=== PATIENT | male | born 1940 | race Caucasian/White ===

== ENCOUNTER → 2016-08-25 | Outpatient (CLI) | payer OTHER ==
[~2016-08-25] MED LIST: ASPI1TAB PO; CALTTAB5 PO; DULE100A IN; INCR1INH IN; MUCI600T34 PO; MUPI2OI TOP; PROBCAP15 PO; TRAZ50TA4 PO; VITA500T53 PO; ZOLO50TA PO
--- NOTE | 2016-08-26 04:48 | REP ---
Clinical: COPD. Technique: PA and lateral. Comparison: 12/28/2013. Findings: Diffuse chronic interstitial changes and evidence for COPD noted. Findings are relatively similar to prior examinations. No obvious acute consolidation, effusion, or pneumothorax. Mediastinum and cardiac silhouette within normal limits. Skeletal structures demonstrate osteopenia and degenerative changes along with prior fixation in the left shoulder. Impression: Diffuse chronic interstitial and COPD type changes. No obvious acute cardiopulmonary process. If the patient remains symptomatic consider chest CT for further investigation. Signed by Edin Sung MD 08/26/2016 04:39 A
== END ==
LOC: M SMT 13:59
PROVIDERS: ATTEND Internal Medicine Pulmonary Disease
DX: J44.9 Chronic obstructive pulmonary disease, unspecified (principal)

== ENCOUNTER → 2017-02-12 | Outpatient (REF) | payer OTHER ==
[~2017-02-12] MED LIST changes: -MUCI600T34 PO; +MUCI600T37 PO; +TRAZ50TA11 PO; -TRAZ50TA4 PO
== END ==
LOC: M LAB REF 16:54
PROVIDERS: ATTEND Physician Assistant Medical
DX: L02.214 Cutaneous abscess of groin (principal)

== ENCOUNTER → 2017-12-15 | Outpatient (CLI) | payer OTHER | LOC: M RAD 10:40 | DX: J44.9 Chronic obstructive pulmonary disease, unspecified (principal); R91.8 Other nonspecific abnormal finding of lung field | CPT/HCPCS: 71046 ==

== ENCOUNTER → 2018-01-06 | Outpatient (CLI) | payer OTHER | LOC: M RAD 10:07 | DX: J44.9 Chronic obstructive pulmonary disease, unspecified (principal) | CPT/HCPCS: 71250 ==

== ENCOUNTER 2018-11-22 23:05 | Emergency (ER) | payer MEDICARE, OTHER ==
[~2018-11-22] VITALS: Ht 190.5 cm; Wt 64.0 kg
[~2018-11-22 23:05] MED LIST changes: -ASPI1TAB PO; +ASPI81TA26 PO; +MUPI1OIN2 TOP; -MUPI2OI TOP; +TRAZ-252 PO; -TRAZ50TA11 PO; +VITA500T17 PO; -VITA500T53 PO
[2018-11-23 00:35] LABS: BASO % 0.3 % (0.0-1.0); EOS # 0.1 10^3/uL (0.0-0.5); EOS % 1.5 % (0.0-3.0); HEMATOCRIT 36.5 % (42.0-52.0); HEMOGLOBIN 12.3 g/dl (13.5-17.5); LYMPH # 1.6 10^3/uL (1.5-5.0); LYMPH % 16.9 % (24.0-44.0); MEAN CORPUSCULAR HEMOGLOBIN 32.4 pg (27.0-33.0); MEAN CORPUSCULAR HGB CONC 33.7 g/dl (32.0-36.5); MEAN CORPUSCULAR VOLUME 96.1 fl (80.0-96.0); MONO % 10.7 % (0.0-5.0); NEUTROPHILS # 6.4 10^3/uL (1.5-8.5); NEUTROPHILS % 70.1 % (36.0-66.0); PLATELET COUNT, AUTOMATED 144 10^3/uL (150-450); WHITE BLOOD COUNT 9.2 10^3/uL (4.0-10.0)
[2018-11-23 00:52] LABS: CALCIUM LEVEL 8.8 MG/DL (8.8-10.2); CK-MB VALUE MASS 1.7 NG/ML (<3.6); CREATININE FOR GFR 1.65 MG/DL (0.70-1.30); GLOMERULAR FILTRATION RATE 43.2 (>42); MB/CK RELATIVE INDEX 5.48 (< OR =4); TROPONIN I 0.02 NG/ML (< 0.10)
[2018-11-23] MEDS ORDERED: NS 500 ML IV ONE (02:30)
--- NOTE | 2018-11-23 04:29 | REPVR ---
EXAM: XR Chest, 2 Views EXAM DATE/TIME: 11/23/2018 2:32 AM CLINICAL HISTORY: 78 years old, male; Other: Near sync; Additional info: Near syncope TECHNIQUE: Imaging protocol: XR of the chest Views: 2 views. COMPARISON: CR Chest, 2 view PA, Lat 12/15/2017 11:17 AM FINDINGS: Lungs: There is hyperinflation and hyperlucency of the lungs, consistent with COPD. There is crowding of markings in the lung bases, which may from low lung volumes and/or mild atelectasis. Pleural space: There are no pleural effusions present. No pneumothorax is seen. Heart/Mediastinum: The heart appears borderline in size, and appears larger than on the prior exam, but the difference may be due to the current AP versus prior PA technique. Vasculature: The aorta demonstrates moderate atherosclerotic calcification. Bones/joints: There is a lucent fracture of the right eighth rib laterally which appears to be acute or subacute. Old rib fractures in the right lower lateral chest were seen on the prior exam. A screw and staple are again seen at the left scapula. IMPRESSION: 1. COPD. Crowding of markings and/or atelectasis in the bilateral lung bases. 2. Right eighth rib fracture, which may be acute or subacute. Electronically signed by: Miladys Cox On 11/23/2018 04:28:56 AM
[2018-11-23 05:47] VITALS: BP 115/62
--- NOTE | 2018-11-23 20:25 | ECGEPIP ---
[facility] - ED Test Date: 2018-11-22 Pat Name: CYRIL MITTAL Department: Room: - Gender: Male Patient Service Rep: KCJ : 1940 Requested By: LONDON Higgins Order Number: [id number] Reading MD: Aura Rivers Measurements Intervals [place] Rate: 60 P: 62 W[place]: 226 QRS: 110 QRSD: 166 T: 57 QT: 428 QTc: 429 Interpretive Statements SINUS RHYTHM WITH FIRST DEGREE AV BLOCK RIGHT BUNDLE BRANCH BLOCK LEFT POSTERIOR FASCICULAR BLOCK SIMILAR 02/22/14 Electronically Signed on 11-23-2018 20:24:42 EDT by Aura Rivers
== END 2018-11-23 05:48 | disposition home or self-care (01) ==
LOC: M ED 23:05
DX: R55 Syncope and collapse (principal); I45.10 Unspecified right bundle-branch block; I44.0 Atrioventricular block, first degree; I44.5 Left posterior fascicular block; S22.31XA Fracture of one rib, right side, initial encounter for closed fracture; X58.XXXA Exposure to other specified factors, initial encounter; Y92.9 Unspecified place or not applicable; Y93.9 Activity, unspecified; Y99.9 Unspecified external cause status; J44.9 Chronic obstructive pulmonary disease, unspecified; N40.0 Benign prostatic hyperplasia without lower urinary tract symptoms; F10.10 Alcohol abuse, uncomplicated; F17.200 Nicotine dependence, unspecified, uncomplicated; Z86.73 Personal history of transient ischemic attack (TIA), and cerebral infarction without residual deficits; Z87.81 Personal history of (healed) traumatic fracture; Z79.82 Long term (current) use of aspirin; Z79.899 Other long term (current) drug therapy; Z88.0 Allergy status to penicillin; Z88.2 Allergy status to sulfonamides

== ENCOUNTER 2018-12-22 14:59 | Inpatient (IN) | payer MEDICARE ==
[~2018-12-22] VITALS: Ht 188 cm; Wt 70.5 kg
[~2018-12-22 14:59] MED LIST changes: -INCR1INH IN; +INCR1INH INH
[2018-12-22] MEDS ORDERED: B-1100TA2 PO (15:21)
[2018-12-22] MEDS ORDERED: LISI-542 PO (15:21)
[2018-12-22] MEDS ORDERED: ATOR40TA75 PO (15:21)
[2018-12-22] MEDS ORDERED: FOLI1TAB11 PO (15:21)
[2018-12-22] MEDS ORDERED: CLOP75TA2 PO (15:21)
[2018-12-22] MEDS ORDERED: LEVO25TA5 PO (15:21)
[2018-12-22] MEDS ORDERED: MIRT1TAB PO (15:21)
--- NOTE | 2018-12-22 15:51 | REP ---
Portable chest x-ray: Single view. History: Dyspnea and cough. Comparison chest x-ray November 23, 2018. Findings: EKG monitoring electrodes and oxygen delivery tubing are seen. Hyperinflation is again noted. There are extensive parenchymal opacities consistent with infiltrates in the right mid and lower lung field. There is a healing rib fracture on the right and several old rib fractures are noted on the right. No infiltrate is visible on the left. Impression: Extensive new right lung infiltrates consistent with pneumonia. Electronically Signed by Francisco Alas MD 12/22/2018 03:42 P
[2018-12-22 15:56] LABS: BASO % 0.1 % (0.0-1.0); HEMATOCRIT 39.6 % (42.0-52.0); HEMOGLOBIN 12.9 g/dl (13.5-17.5); LYMPH # 0.7 10^3/uL (1.5-5.0); LYMPH % 5.2 % (24.0-44.0); MEAN CORPUSCULAR HGB CONC 32.6 g/dl (32.0-36.5); MEAN CORPUSCULAR VOLUME 95.2 fl (80.0-96.0); MONO # 1.9 10^3/uL (0.0-0.8); MONO % 13.1 % (0.0-5.0); NEUTROPHILS # 11.5 10^3/uL (1.5-8.5); NEUTROPHILS % 80.5 % (36.0-66.0); PLATELET COUNT, AUTOMATED 308 10^3/uL (150-450); RED BLOOD COUNT 4.16 10^6/uL (4.30-6.10); WHITE BLOOD COUNT 14.3 10^3/uL (4.0-10.0)
[2018-12-22] MEDS ORDERED: ALBUTEROL SULFATE 2.5 MG/0.5 ML INH NEB SOLN INH ONE (16:00)
[2018-12-22] MEDS ORDERED: NS 500 ML IV ONE (16:00)
[2018-12-22] MEDS ORDERED: IPRATROPIUM 0.5MG/ALBUTEROL 2.5MG INH SOL UD 3ML (DUONEB)(J7620) NEB ONE (16:00)
[2018-12-22] MEDS ORDERED: dexameTHASONE 20 MG/5 ML VIAL (J1100) IV ONE (16:00)
[2018-12-22] MEDS ORDERED: cefTRIAXone SOD 2 GM in D5W MINI-BAG PLUS 50 ML IV ONE (16:00)
[2018-12-22 16:34] LABS: ABG BASE EXCESS 0.9 (-2.0-2.0); ABG HCO3 27.9 MEQ/L (22.0-26.0); ABG O2 SATURATION 98.4 % (95.0-99.0); ABG PARTIAL PRESSURE CO2 55.1 mmHg (35.0-45.0); ABG PARTIAL PRESSURE O2 119.6 mmHg (75.0-100.0); ABG STANDARD HCO3 25.3 MEQ/L (22.0-26.0); ABG TOTAL CO2 29.6 MEQ/L (23.0-31.0); ABG pH (ARTERIAL) 7.323 UNITS (7.350-7.450)
[2018-12-22 16:55] LABS: ALBUMIN 2.7 GM/DL (3.2-5.2); ALT/SGPT 27 U/L (12-78); BILIRUBIN,DIRECT 0.1 MG/DL (0.0-0.2); BILIRUBIN,TOTAL 0.6 MG/DL (0.2-1.0); BLOOD UREA NITROGEN 18 MG/DL (7-18); CALCIUM LEVEL 8.7 MG/DL (8.8-10.2); CARBON DIOXIDE LEVEL 29 MEQ/L (21-32); CHLORIDE LEVEL 91 MEQ/L (98-107); CK-MB VALUE MASS 4.1 NG/ML (<3.6); CPK CREATINE PHOSPHOKINASE 115 U/L (39-308); CREATININE FOR GFR 1.03 MG/DL (0.70-1.30); GLOMERULAR FILTRATION RATE > 60.0 (>42); GLUCOSE, FASTING 130 MG/DL (70-100); MB/CK RELATIVE INDEX 3.57 (< OR =4); NT-PRO BNP 8011 PG/ML (<450); POTASSIUM SERUM 5.2 MEQ/L (3.5-5.1); SODIUM LEVEL 127 MEQ/L (136-145); THYROXINE (T4) 8.9 UG/DL (4.5-12.0); TOTAL PROTEIN 6.6 GM/DL (6.4-8.2)
[2018-12-22 16:56] LABS: INFLUENZA A AMPLIFICATION NEGATIVE (NEGATIVE); INFLUENZA B AMPLIFICATION NEGATIVE (NEGATIVE)
[2018-12-22] MEDS ORDERED: VENTAER INH (18:39)
[2018-12-22] MEDS ORDERED: SENN1TAB8 PO (18:47)
[2018-12-22] MEDS ORDERED: TEMA15CA2 PO (18:47)
[2018-12-22] MEDS ORDERED: CVS10CAP8 PO (18:47)
[2018-12-22 19:00] VITALS: O2SAT 97
--- NOTE | 2018-12-22 19:06 | ECGEPIP ---
[facility] - ED Test Date: 2018-12-22 Pat Name: CYRIL MITTAL Department: Room: - Gender: Male Sheet Writer: [email or web address] : 1940 Requested By: ELIANE Olsen Order Number: [id number] Reading MD: Torres Castillo Measurements Intervals [place] Rate: 92 P: 62 W[place]: 219 QRS: 136 QRSD: 170 T: -60 QT: 366 QTc: 455 Interpretive Statements SINUS RHYTHM WITH FIRST DEGREE AV BLOCK RIGHT BUNDLE BRANCH BLOCK LEFT POSTERIOR FASCICULAR BLOCK SIMILAR TO 11/22/18 Electronically Signed on 12-22-2018 19:05:47 EDT by Torres Castillo
[2018-12-22 20:00] VITALS: O2SAT 91
[2018-12-22] MEDS ORDERED: ACETAMINOPHEN TAB 650MG DOSE (2X325MG) PO PRN (20:00)
[2018-12-22] MEDS ORDERED: SENNA 8.6 MG TAB (SENOKOT) PO PRN (20:00)
[2018-12-22] MEDS ORDERED: MAALOX 30 ML SUSP *UDC PO PRN (20:00)
[2018-12-22] MEDS ORDERED: IPRATROPIUM 0.5MG/ALBUTEROL 2.5MG INH SOL UD 3ML (DUONEB)(J7620) NEB PRN (20:00)
[2018-12-22] MEDS ORDERED: MOM 30ML SUSPENSION UDC PO PRN (20:00)
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
[2018-12-22 21:00] VITALS: O2SAT 94
[2018-12-22] MEDS: NICOTINE 14 MG/24 HR TRANSDERMAL TD SCH (21:00)
[2018-12-22 21:13] VITALS: BP 151/77
[2018-12-22] MEDS: AZITHROMYCIN INJ 500 MG, VIAL MATE ADAPTER 1 EACH in D5W 250 ML IV SCH (21:56)
[2018-12-22] MEDS: ATORVASTATIN 20 MG TAB PO SCH (22:28)
[2018-12-22] MEDS: DOCUSATE SODIUM 100 MG CAP PO SCH (22:29)
[2018-12-22] MEDS: LISINOPRIL 5 MG TAB PO SCH (22:29)
[2018-12-22] MEDS: MIRTAZAPINE 7.5MG PER 1/2 TABLET PO SCH (22:30)
[2018-12-22] MEDS: THIAMINE 100 MG TAB PO SCH (22:30)
[2018-12-22] MEDS: IPRATROPIUM 0.5MG/ALBUTEROL 2.5MG INH SOL UD 3ML (DUONEB)(J7620) NEB SCH (23:20)
[2018-12-23] VITALS (21 sets, daily range): BP systolic 106–136; BP diastolic 60–69; O2SAT 87–98
[2018-12-23] MEDS: IPRATROPIUM 0.5MG/ALBUTEROL 2.5MG INH SOL UD 3ML (DUONEB)(J7620) NEB SCH ×4 (03:13→20:21)
[2018-12-23] MEDS: methylPREDNISolone INJ 125 MG/2 ML VIAL (J2930) IV SCH ×3 (03:17→18:17)
[2018-12-23 05:43] LABS: HEMATOCRIT 37.6 % (42.0-52.0); HEMOGLOBIN 12.4 g/dl (13.5-17.5); MEAN CORPUSCULAR HEMOGLOBIN 31.5 pg (27.0-33.0); MEAN CORPUSCULAR VOLUME 95.4 fl (80.0-96.0); PLATELET COUNT, AUTOMATED 295 10^3/uL (150-450); RED BLOOD COUNT 3.94 10^6/uL (4.30-6.10); WHITE BLOOD COUNT 12.8 10^3/uL (4.0-10.0)
[2018-12-23 06:21] LABS: ALBUMIN 2.4 GM/DL (3.2-5.2); ALT/SGPT 22 U/L (12-78); BILIRUBIN,TOTAL 0.3 MG/DL (0.2-1.0); BLOOD UREA NITROGEN 20 MG/DL (7-18); CALCIUM LEVEL 8.1 MG/DL (8.8-10.2); CARBON DIOXIDE LEVEL 29 MEQ/L (21-32); CHLORIDE LEVEL 94 MEQ/L (98-107); CREATININE FOR GFR 0.92 MG/DL (0.70-1.30); GLOMERULAR FILTRATION RATE > 60.0 (>42); GLUCOSE, FASTING 134 MG/DL (70-100); MAGNESIUM LEVEL 1.8 MG/DL (1.8-2.4); NT-PRO BNP 7325 PG/ML (<450); SODIUM LEVEL 129 MEQ/L (136-145); TROPONIN I 0.04 NG/ML (< 0.10)
[2018-12-23] MEDS: LEVOTHYROXINE 25MCG TABLET (0.025MG) PO SCH (06:29)
[2018-12-23] MEDS: HEPARIN SOD (PORCINE) 5000 UNITS/ML VIAL SC SCH ×2 (09:04→21:15)
[2018-12-23] MEDS: FOLIC ACID 1 MG TAB PO SCH (09:04)
[2018-12-23] MEDS: DOCUSATE SODIUM 100 MG CAP PO SCH ×2 (09:04→21:13)
[2018-12-23] MEDS: ASPIRIN 81 MG ENTERIC TAB PO SCH (09:04)
[2018-12-23] MEDS: CLOPIDOGREL 75 MG TAB PO SCH (09:04)
--- NOTE | 2018-12-23 18:02 | IPNPDOC ---
Text Note Date of Service The patient was seen on 12/23/18. NOTE SUBJECTIVE: Mr. Bella denies any cough or congestion. States he had productive cough initially at admission, but none now. He denies any shortness of breath as well. The patient is admitted with a right-sided community-acquired pneumonia. The patient is attributing this to receiving a flu shot but I have explained that this is highly unlikely. OBJECTIVE: Please see vital signs below--he has been afebrile since. MAXIMUM TEMPERATURE of 99 at admission. Physical exam: General: The patient is ill appearing HENT: Neck is supple with no adenopathy or thyromegaly. He does have some scleral injection CV: Regular rate and rhythm with a normal S1 and S2. Respiratory: Patient has right sided basilar coarse breath sounds and crackles, no active cough Abdomen: Soft, nontender, nondistended, bowel tones are present. Extremities: Pedal pulses are palpable, no peripheral edema. Neuro: No focal neuromotor or sensory deficits ASSESSMENT/PLAN: Community-acquired pneumonia. Patient has significant right-sided infiltrates. He presented with productive cough but does not have any currently. He is on appropriate therapy in the form of ceftriaxone and azithromycin. Leukocytosis is improving and cultures are negative to date. The patient continues on his usual medication regimen to manage his underlying hypertension, coronary artery disease, hypothyroidism, and benign prostatic hypertrophy. In the presence of his pneumonia he does not appear to be having an acute exacerbation of his COPD. VS,Fishbone, I+O VS, Fishbone, I+O Laboratory Tests 12/23/18 05:21 Red Blood Count 3.94 L, Mean Corpuscular Volume 95.4, Mean Corpuscular Hemoglobin 31.5, Mean Corpuscular Hemoglobin Concent 33.0, Red Cell Distribution Width 15.6 H, Calcium Level 8.1 L, Aspartate Amino Transf (AST/SGOT) 21, Alanine Aminotransferase (ALT/SGPT) 22, Alkaline Phosphatase 71, Total Bilirubin 0.3, Total Protein 6.0 L, Albumin 2.4 L Vital Signs Date Time Temp Pulse Resp B/P (MAP) Pulse Ox O2 Delivery O2 Flow Rate FiO2 12/23/18 16:00 95 Nasal Cannula 2.0 12/23/18 16:00 98.3 89 20 126/69 (88) I&O- Last 24 Hours up to 6 AM 12/23/18 06:00 Intake Total 1180 ml Output Total 250 ml Balance 930 ml YESENIA GUPTA MD Dec 23, 2018 18:02
[2018-12-23] MEDS: cefTRIAXone SOD 1 GM in D5W MINI-BAG PLUS 50 ML IV SCH (20:19)
[2018-12-23] MEDS: MIRTAZAPINE 7.5MG PER 1/2 TABLET PO SCH (21:14)
[2018-12-23] MEDS: ATORVASTATIN 20 MG TAB PO SCH (21:14)
[2018-12-23] MEDS: THIAMINE 100 MG TAB PO SCH (21:15)
[2018-12-23] MEDS: NICOTINE 14 MG/24 HR TRANSDERMAL TD SCH (21:15)
[2018-12-23] MEDS: AZITHROMYCIN INJ 500 MG, VIAL MATE ADAPTER 1 EACH in D5W 250 ML IV SCH (21:16)
[2018-12-23] MEDS: LISINOPRIL 5 MG TAB PO SCH (21:19)
[2018-12-23] MEDS ORDERED: SLF 3 ML SYR IV PRN (23:15)
[2018-12-24] VITALS (23 sets, daily range): BP systolic 120–144; BP diastolic 64–78; O2SAT 77–98
[2018-12-24] MEDS: IPRATROPIUM 0.5MG/ALBUTEROL 2.5MG INH SOL UD 3ML (DUONEB)(J7620) NEB SCH ×4 (02:00→20:09)
[2018-12-24] MEDS: methylPREDNISolone INJ 125 MG/2 ML VIAL (J2930) IV SCH ×3 (02:46→18:26)
[2018-12-24 05:37] LABS: BASO % 0.3 % (0.0-1.0); HEMATOCRIT 34.3 % (42.0-52.0); HEMOGLOBIN 11.2 g/dl (13.5-17.5); LYMPH # 1.4 10^3/uL (1.5-5.0); LYMPH % 10.7 % (24.0-44.0); MEAN CORPUSCULAR HEMOGLOBIN 31.5 pg (27.0-33.0); MEAN CORPUSCULAR HGB CONC 32.7 g/dl (32.0-36.5); MEAN CORPUSCULAR VOLUME 96.6 fl (80.0-96.0); MONO % 7.6 % (0.0-5.0); NEUTROPHILS # 9.9 10^3/uL (1.5-8.5); NEUTROPHILS % 76.7 % (36.0-66.0); PLATELET COUNT, AUTOMATED 339 10^3/uL (150-450); RED BLOOD COUNT 3.55 10^6/uL (4.30-6.10)
[2018-12-24 05:56] LABS: BLOOD UREA NITROGEN 23 MG/DL (7-18); CALCIUM LEVEL 8.5 MG/DL (8.8-10.2); CARBON DIOXIDE LEVEL 32 MEQ/L (21-32); CHLORIDE LEVEL 94 MEQ/L (98-107); CREATININE FOR GFR 0.91 MG/DL (0.70-1.30); GLOMERULAR FILTRATION RATE > 60.0 (>42); GLUCOSE, FASTING 131 MG/DL (70-100); POTASSIUM SERUM 4.6 MEQ/L (3.5-5.1); SODIUM LEVEL 129 MEQ/L (136-145)
[2018-12-24] MEDS: LEVOTHYROXINE 25MCG TABLET (0.025MG) PO SCH (06:02)
[2018-12-24] MEDS: SLF 3 ML SYR IV SCH ×3 (06:02→20:33)
--- NOTE | 2018-12-24 06:50 | ECHO ---
DATE OF SERVICE: 12/23/2018 REFERRING PROVIDER: Dr. Varun Wallace PATIENT LOCATION: Room 3212. REASON FOR ECHOCARDIOGRAM: Shortness of breath. 2D MEASUREMENTS: IVS: 1.1 cm LV: 4.0 cm LVPW: 1.1 cm LA: 2.3 cm Aorta: 4.0 cm RV: 4.2 cm IVC: 1.9 cm DOPPLER MEASUREMENTS: Peak velocity across the aortic valve: 0.99 m/s Peak velocity across the LVOT: 0.81 m/s Mitral E: 0.44 Mitral A: 0.62 with a ratio of 0.7 Maximum tricuspid valve velocity: 2.7 m/s 2D COMMENTS: 1. Normal left ventricular size, wall thickness, and normal global left ventricular systolic function. There was a hyperdynamic left ventricle with an estimated left ventricular systolic ejection fraction of 65-70%. 2. Normal left atrium. Moderately enlarged right atrium and right ventricle. The right ventricle free wall seems to be hypokinetic consistent with right ventricular systolic dysfunction. 3. The atrial septum appeared to be normal without evidence of defect or shunt. 4. Mildly dilated aortic root at 4.0 cm. 5. No pericardial effusion seen. 6. Mildly calcified aortic valve with normal leaflet excursion. Mildly calcified mitral annulus with normal anterior mitral valve leaflet motion. Normal tricuspid valve and pulmonic valve. The proximal pulmonary artery branches were not well visualized. 7. The inferior vena cava seems to be normal in size. Doppler, it detects mild tricuspid regurgitation. The calculated pulmonary artery systolic pressure varies between 30-40 mmHg. Assessment of the left ventricular diastolic function appeared to be normal. IMPRESSION: 1. Normal global left ventricular systolic function with a hyperdynamic left ventricle. Assessment of the left ventricular diastolic function appeared to be normal. 2. Aortic valve sclerosis without stenosis or aortic regurgitation. 3. Mitral annulus calcification with without any significant mitral regurgitation or mitral stenosis. 4. Mild tricuspid regurgitation with mild pulmonary hypertension. Could not rule out more severe pulmonary hypertension. 5. Dilated right heart chambers with right ventricular systolic dysfunction.
[2018-12-24] MEDS: DOCUSATE SODIUM 100 MG CAP PO SCH ×3 (08:52→20:35)
[2018-12-24] MEDS: CLOPIDOGREL 75 MG TAB PO SCH (08:52)
[2018-12-24] MEDS: FOLIC ACID 1 MG TAB PO SCH (08:52)
[2018-12-24] MEDS: ASPIRIN 81 MG ENTERIC TAB PO SCH (08:52)
[2018-12-24] MEDS: HEPARIN SOD (PORCINE) 5000 UNITS/ML VIAL SC SCH ×2 (08:55→20:32)
--- NOTE | 2018-12-24 18:50 | IPNPDOC ---
Text Note Date of Service The patient was seen on 12/24/18. NOTE SUBJECTIVE: Mr. Bella was admitted with community-acquired pneumonia. He cannot deny today that he is producing large quantities of yellow sputum with coughing. OBJECTIVE: Please see vital signs below Physical exam: HENT: Neck is supple with no adenopathy or thyromegaly. He does have some scleral injection CV: Regular rate and rhythm with a normal S1 and S2. Respiratory: Patient has right sided basilar coarse breath sounds and crackles, with coarse productive cough Abdomen: Soft, nontender, nondistended, bowel tones are present. Extremities: Pedal pulses are palpable, trace pitting ankle edema. Neuro: No focal neuromotor or sensory deficits ASSESSMENT/PLAN: 1. Community-acquired pneumonia. Patient has significant right-sided infiltrates. He presented with productive cough. He is on appropriate therapy in the form of ceftriaxone and azithromycin. Leukocytosis is improving and cultures are negative to date. 2.The patient continues on his usual medication regimen to manage his underlying hypertension, coronary artery disease, hypothyroidism, and benign prostatic hypertrophy. In the presence of his pneumonia he does not appear to be having an acute exacerbation of his COPD. 3. Heart failure. Echocardiogram shows preserved left ventricular function with ejection fraction of 65-70%. However, there is right sided hypokinesis consistent with right ventricular systolic dysfunction. Pulmonary artery systolic pressure is 30-40 mmHg, consistent with at least mild pulmonary hypertension. Patient will be treated as clinically appropriate. VS,Fishbone, I+O VS, Fishbone, I+O Laboratory Tests 12/24/18 05:13 Red Blood Count 3.55 L, Mean Corpuscular Volume 96.6 H, Mean Corpuscular Hemoglobin 31.5, Mean Corpuscular Hemoglobin Concent 32.7, Red Cell Distribution Width 15.4 H, Neutrophils (%) (Auto) 76.7 H, Lymphocytes (%) (Auto) 10.7 L, Monocytes (%) (Auto) 7.6 H, Eosinophils (%) (Auto) 0.0, Basophils (%) (Auto) 0.3, Neutrophils # (Auto) 9.9 H, Lymphocytes # (Auto) 1.4 L, Monocytes # (Auto) 1.0 H, Eosinophils # (Auto) 0.0, Basophils # (Auto) 0.0, Calcium Level 8.5 L Vital Signs Date Time Temp Pulse Resp B/P (MAP) Pulse Ox O2 Delivery O2 Flow Rate FiO2 12/24/18 18:06 96 Nasal Cannula 2.0 12/24/18 16:00 96.7 81 19 132/76 (94) I&O- Last 24 Hours up to 6 AM 12/24/18 06:00 Intake Total 2485 ml Output Total 825 ml Balance 1660 ml YESENIA GUPTA MD Dec 24, 2018 18:50
[2018-12-24] MEDS: TEMAZEPAM 15 MG CAP PO PRN (19:44)
[2018-12-24] MEDS: cefTRIAXone SOD 1 GM in D5W MINI-BAG PLUS 50 ML IV SCH (19:44)
[2018-12-24] MEDS: THIAMINE 100 MG TAB PO SCH (20:31)
[2018-12-24] MEDS: MIRTAZAPINE 7.5MG PER 1/2 TABLET PO SCH (20:31)
[2018-12-24] MEDS: NICOTINE 14 MG/24 HR TRANSDERMAL TD SCH (20:31)
[2018-12-24] MEDS: ATORVASTATIN 20 MG TAB PO SCH (20:31)
[2018-12-24] MEDS: LISINOPRIL 5 MG TAB PO SCH (20:32)
[2018-12-24] MEDS: AZITHROMYCIN INJ 500 MG, VIAL MATE ADAPTER 1 EACH in D5W 250 ML IV SCH (20:32)
[2018-12-25] VITALS (12 sets, daily range): BP systolic 112–145; BP diastolic 60–78; O2SAT 86–99
[2018-12-25] MEDS: IPRATROPIUM 0.5MG/ALBUTEROL 2.5MG INH SOL UD 3ML (DUONEB)(J7620) NEB SCH ×4 (01:33→19:52)
[2018-12-25] MEDS: methylPREDNISolone INJ 125 MG/2 ML VIAL (J2930) IV SCH ×3 (03:44→18:14)
[2018-12-25] MEDS: LEVOTHYROXINE 25MCG TABLET (0.025MG) PO SCH (05:21)
[2018-12-25] MEDS: SLF 3 ML SYR IV SCH ×3 (05:22→21:08)
[2018-12-25] MEDS: DOCUSATE SODIUM 100 MG CAP PO SCH ×2 (08:43→21:06)
[2018-12-25] MEDS: CLOPIDOGREL 75 MG TAB PO SCH (08:43)
[2018-12-25] MEDS: HEPARIN SOD (PORCINE) 5000 UNITS/ML VIAL SC SCH ×2 (08:43→21:06)
[2018-12-25] MEDS: FOLIC ACID 1 MG TAB PO SCH (08:43)
[2018-12-25] MEDS: ASPIRIN 81 MG ENTERIC TAB PO SCH (08:43)
[2018-12-25 08:46] LABS: HEMATOCRIT 38.6 % (42.0-52.0); HEMOGLOBIN 12.5 g/dl (13.5-17.5); MEAN CORPUSCULAR HEMOGLOBIN 31.3 pg (27.0-33.0); MEAN CORPUSCULAR HGB CONC 32.4 g/dl (32.0-36.5); MEAN CORPUSCULAR VOLUME 96.5 fl (80.0-96.0); PLATELET COUNT, AUTOMATED 433 10^3/uL (150-450); WHITE BLOOD COUNT 13.5 10^3/uL (4.0-10.0)
[2018-12-25 09:12] LABS: BLOOD UREA NITROGEN 22 MG/DL (7-18); CALCIUM LEVEL 9.1 MG/DL (8.8-10.2); CARBON DIOXIDE LEVEL 35 MEQ/L (21-32); CHLORIDE LEVEL 92 MEQ/L (98-107); CREATININE FOR GFR 0.87 MG/DL (0.70-1.30); GLOMERULAR FILTRATION RATE > 60.0 (>42); GLUCOSE, FASTING 128 MG/DL (70-100); POTASSIUM SERUM 5.1 MEQ/L (3.5-5.1); SODIUM LEVEL 130 MEQ/L (136-145)
[2018-12-25] MEDS: cefTRIAXone SOD 1 GM in D5W MINI-BAG PLUS 50 ML IV SCH (18:14)
--- NOTE | 2018-12-25 19:59 | IPNPDOC ---
Text Note Date of Service The patient was seen on 12/25/18. NOTE SUBJECTIVE: Mr. Bella is doing well today. He is sitting upright in a chair eating breakfast. He does not have any respiratory distress. The patient is admitted with right-sided pneumonia. OBJECTIVE: Please see vital signs below Physical exam: HENT: Neck is supple with no adenopathy or thyromegaly. He does have some scleral injection CV: Regular rate and rhythm with a normal S1 and S2. Respiratory: Patient has bilaterally, good air moment with right-sided coarse breath sounds and cough resolved for now Abdomen: Soft, nontender, nondistended, bowel tones are present. Extremities: Pedal pulses are palpable, trace pitting ankle edema. Neuro: No focal neuromotor or sensory deficits ASSESSMENT/PLAN: 1. Community-acquired pneumonia. Patient has significant right-sided infiltrates. He presented with productive cough. He is on appropriate therapy in the form of ceftriaxone and azithromycin. Leukocytosis is improving and cultures are negative to date. 2.The patient continues on his usual medication regimen to manage his underlying hypertension, coronary artery disease, hypothyroidism, and benign prostatic hypertrophy. In the presence of his pneumonia he does not appear to be having an acute exacerbation of his COPD. 3. Heart failure. Echocardiogram shows preserved left ventricular function with ejection fraction of 65-70%. However, there is right sided hypokinesis consistent with right ventricular systolic dysfunction. Pulmonary artery systolic pressure is 30-40 mmHg, consistent with at least mild pulmonary hypertension. Patient will be treated as clinically appropriate. VS,Fishbone, I+O VS, Fishbone, I+O Laboratory Tests 12/25/18 08:11 Red Blood Count 4.00 L, Mean Corpuscular Volume 96.5 H, Mean Corpuscular Hemoglobin 31.3, Mean Corpuscular Hemoglobin Concent 32.4, Red Cell Distribution Width 15.4 H, Calcium Level 9.1 Vital Signs Date Time Temp Pulse Resp B/P (MAP) Pulse Ox O2 Delivery O2 Flow Rate FiO2 12/25/18 16:00 97.9 73 16 139/77 (97) 91 1.0 12/25/18 06:00 Nasal Cannula I&O- Last 24 Hours up to 6 AM 12/25/18 06:00 Intake Total 905 ml Output Total 850 ml Balance 55 ml YESENIA GUPTA MD Dec 25, 2018 19:59
[2018-12-25] MEDS: NICOTINE 14 MG/24 HR TRANSDERMAL TD SCH (21:05)
[2018-12-25] MEDS: ATORVASTATIN 20 MG TAB PO SCH (21:06)
[2018-12-25] MEDS: AZITHROMYCIN INJ 500 MG, VIAL MATE ADAPTER 1 EACH in D5W 250 ML IV SCH (21:06)
[2018-12-25] MEDS: MIRTAZAPINE 7.5MG PER 1/2 TABLET PO SCH (21:06)
[2018-12-25] MEDS: TEMAZEPAM 15 MG CAP PO PRN (21:06)
[2018-12-25] MEDS: LISINOPRIL 5 MG TAB PO SCH (21:08)
[2018-12-25] MEDS: THIAMINE 100 MG TAB PO SCH (21:08)
[2018-12-26] VITALS: BP 119/70
[2018-12-26] MEDS: IPRATROPIUM 0.5MG/ALBUTEROL 2.5MG INH SOL UD 3ML (DUONEB)(J7620) NEB SCH ×4 (02:00→19:25)
[2018-12-26] MEDS: methylPREDNISolone INJ 125 MG/2 ML VIAL (J2930) IV SCH ×3 (02:41→18:40)
[2018-12-26 04:00] VITALS: BP 122/66
[2018-12-26 05:43] LABS: HEMOGLOBIN 11.7 g/dl (13.5-17.5); MEAN CORPUSCULAR HGB CONC 32.5 g/dl (32.0-36.5); MEAN CORPUSCULAR VOLUME 95.5 fl (80.0-96.0); PLATELET COUNT, AUTOMATED 366 10^3/uL (150-450); RED BLOOD COUNT 3.77 10^6/uL (4.30-6.10); WHITE BLOOD COUNT 12.3 10^3/uL (4.0-10.0)
[2018-12-26] MEDS: LEVOTHYROXINE 25MCG TABLET (0.025MG) PO SCH (06:05)
[2018-12-26] MEDS: SLF 3 ML SYR IV SCH ×3 (06:06→20:47)
[2018-12-26 06:13] LABS: BLOOD UREA NITROGEN 23 MG/DL (7-18); CALCIUM LEVEL 8.3 MG/DL (8.8-10.2); CARBON DIOXIDE LEVEL 33 MEQ/L (21-32); CHLORIDE LEVEL 92 MEQ/L (98-107); CREATININE FOR GFR 0.81 MG/DL (0.70-1.30); GLOMERULAR FILTRATION RATE > 60.0 (>42); GLUCOSE, FASTING 150 MG/DL (70-100); POTASSIUM SERUM 5.2 MEQ/L (3.5-5.1); SODIUM LEVEL 128 MEQ/L (136-145)
[2018-12-26 08:00] VITALS: BP 140/76
[2018-12-26] MEDS: CLOPIDOGREL 75 MG TAB PO SCH (09:50)
[2018-12-26] MEDS: FOLIC ACID 1 MG TAB PO SCH (09:50)
[2018-12-26] MEDS: DOCUSATE SODIUM 100 MG CAP PO SCH ×2 (09:50→20:46)
[2018-12-26] MEDS: ASPIRIN 81 MG ENTERIC TAB PO SCH (09:51)
[2018-12-26] MEDS: HEPARIN SOD (PORCINE) 5000 UNITS/ML VIAL SC SCH ×2 (09:51→20:46)
[2018-12-26 12:00] VITALS: BP 145/70
[2018-12-26] MEDS: AZITHROMYCIN 250 MG TAB PO SCH (15:08)
--- NOTE | 2018-12-26 17:29 | IPNPDOC ---
Text Note Date of Service The patient was seen on 12/26/18. NOTE SUBJECTIVE: The patient is awake, alert and conversant. He is tolerating being up in a chair. Patient was admitted with right-sided pneumonia. His FiO2 has been weaned down to 1 L/m. OBJECTIVE: Please see vital signs below Physical exam: HENT: Neck is supple with no adenopathy or thyromegaly. He does have some scleral injection CV: Regular rate and rhythm with a normal S1 and S2. Respiratory: Patient has bilaterally, good air moment, he has resolution for now of his coarse breath sounds and cough Abdomen: Soft, nontender, nondistended, bowel tones are present. Extremities: Pedal pulses are palpable, trace pitting ankle edema. Neuro: No focal neuromotor or sensory deficits ASSESSMENT/PLAN: 1. Community-acquired pneumonia. Patient has significant right-sided infiltrates. He presented with productive cough. Leukocytosis is improving and blood cultures are negative to date. The patient had initially been on IV antibiotics in the form of ceftriaxone and azithromycin and is transitioned to oral antibiotics. FiO2 has been weaned down to 1 L/m; the patient is not on oxygen at baseline at home. Patient continues with physical therapy to work on his activity tolerance. 2.The patient continues on his usual medication regimen to manage his underlying hypertension, coronary artery disease, hypothyroidism, and benign prostatic hypertrophy. In the presence of his pneumonia he does not appear to be having an acute exacerbation of his COPD. 3. Heart failure. Echocardiogram shows preserved left ventricular function with ejection fraction of 65-70%. However, there is right sided hypokinesis consistent with right ventricular systolic dysfunction. Pulmonary artery systolic pressure is 30-40 mmHg, consistent with at least mild pulmonary hypertension. Patient will be treated as clinically appropriate. VS,Fishbone, I+O VS, Fishbone, I+O Laboratory Tests 12/26/18 05:21 Red Blood Count 3.77 L, Mean Corpuscular Volume 95.5, Mean Corpuscular Hemoglobin 31.0, Mean Corpuscular Hemoglobin Concent 32.5, Red Cell Distribution Width 15.4 H, Calcium Level 8.3 L Vital Signs Date Time Temp Pulse Resp B/P (MAP) Pulse Ox O2 Delivery O2 Flow Rate FiO2 12/26/18 12:00 97.3 60 16 145/70 (95) 94 1.0 12/25/18 06:00 Nasal Cannula I&O- Last 24 Hours up to 6 AM 12/26/18 06:00 Intake Total 1720 ml Output Total 500 ml Balance 1220 ml YESENIA GUPTA MD Dec 26, 2018 17:29
[2018-12-26 20:00] VITALS: BP 158/72
[2018-12-26] MEDS: THIAMINE 100 MG TAB PO SCH (20:44)
[2018-12-26] MEDS: ATORVASTATIN 20 MG TAB PO SCH (20:45)
[2018-12-26] MEDS: CEFUROXIME 500 MG TAB PO SCH (20:45)
[2018-12-26] MEDS: LISINOPRIL 5 MG TAB PO SCH (20:45)
[2018-12-26] MEDS: MIRTAZAPINE 7.5MG PER 1/2 TABLET PO SCH (20:45)
[2018-12-26] MEDS: NICOTINE 14 MG/24 HR TRANSDERMAL TD SCH (20:47)
[2018-12-27] VITALS: BP 132/74
[2018-12-27] MEDS: IPRATROPIUM 0.5MG/ALBUTEROL 2.5MG INH SOL UD 3ML (DUONEB)(J7620) NEB SCH ×4 (00:04→19:52)
[2018-12-27] MEDS: methylPREDNISolone INJ 125 MG/2 ML VIAL (J2930) IV SCH ×3 (03:06→18:07)
[2018-12-27 04:00] VITALS: BP 135/78
[2018-12-27 05:37] LABS: HEMATOCRIT 37.4 % (42.0-52.0); HEMOGLOBIN 12.4 g/dl (13.5-17.5); MEAN CORPUSCULAR HEMOGLOBIN 30.8 pg (27.0-33.0); MEAN CORPUSCULAR HGB CONC 33.2 g/dl (32.0-36.5); PLATELET COUNT, AUTOMATED 401 10^3/uL (150-450); RED BLOOD COUNT 4.02 10^6/uL (4.30-6.10); WHITE BLOOD COUNT 13.8 10^3/uL (4.0-10.0)
[2018-12-27 05:56] LABS: BLOOD UREA NITROGEN 22 MG/DL (7-18); CARBON DIOXIDE LEVEL 33 MEQ/L (21-32); CHLORIDE LEVEL 92 MEQ/L (98-107); CREATININE FOR GFR 0.72 MG/DL (0.70-1.30); GLOMERULAR FILTRATION RATE > 60.0 (>42); GLUCOSE, FASTING 128 MG/DL (70-100); POTASSIUM SERUM 4.6 MEQ/L (3.5-5.1); SODIUM LEVEL 128 MEQ/L (136-145)
[2018-12-27] MEDS: LEVOTHYROXINE 25MCG TABLET (0.025MG) PO SCH (06:35)
[2018-12-27] MEDS: SLF 3 ML SYR IV SCH ×3 (06:36→20:39)
[2018-12-27 08:00] VITALS: BP 142/72
[2018-12-27] MEDS: HEPARIN SOD (PORCINE) 5000 UNITS/ML VIAL SC SCH ×2 (09:46→20:37)
[2018-12-27] MEDS: AZITHROMYCIN 250 MG TAB PO SCH (09:46)
[2018-12-27] MEDS: FOLIC ACID 1 MG TAB PO SCH (09:46)
[2018-12-27] MEDS: ASPIRIN 81 MG ENTERIC TAB PO SCH (09:46)
[2018-12-27] MEDS: DOCUSATE SODIUM 100 MG CAP PO SCH ×2 (09:46→20:38)
[2018-12-27] MEDS: CLOPIDOGREL 75 MG TAB PO SCH (09:47)
[2018-12-27] MEDS: CEFUROXIME 500 MG TAB PO SCH ×2 (09:47→20:38)
[2018-12-27 12:00] VITALS: BP 158/77
[2018-12-27 16:00] VITALS: BP 151/74
--- NOTE | 2018-12-27 19:32 | IPNPDOC ---
Text Note Date of Service The patient was seen on 12/27/18. NOTE SUBJECTIVE: The patient is exhibiting more fatigue today. Patient was admitted with right- sided pneumonia. His FiO2 has been weaned down to 1 L/m. OBJECTIVE: Please see vital signs below Physical exam: HENT: Neck is supple with no adenopathy or thyromegaly. He does have some scleral injection CV: Regular rate and rhythm with a normal S1 and S2. Respiratory: Patient has bilaterally, good air moment, he has resolution for now of his coarse breath sounds and cough Abdomen: Soft, nontender, nondistended, bowel tones are present. Extremities: Pedal pulses are palpable, trace pitting ankle edema. Neuro: No focal neuromotor or sensory deficits ASSESSMENT/PLAN: 1. Community-acquired pneumonia. Patient has significant right-sided infiltrates. He presented with productive cough. Leukocytosis is improving and blood cultures are negative to date. The patient had initially been on IV antibiotics in the form of ceftriaxone and azithromycin and is transitioned to oral antibiotics. FiO2 has been weaned down to 1 L/m; the patient is not on oxygen at baseline at home. Patient continues with physical therapy to work on his activity tolerance. Will obtain walk test for home O2 for objective assessment. 2.The patient continues on his usual medication regimen to manage his underlying hypertension, coronary artery disease, hypothyroidism, and benign prostatic hy pertrophy. In the presence of his pneumonia he does not appear to be having an acute exacerbation of his COPD. 3. Heart failure. Echocardiogram shows preserved left ventricular function with ejection fraction of 65-70%. However, there is right sided hypokinesis consistent with right ventricular systolic dysfunction. Pulmonary artery systolic pressure is 30-40 mmHg, consistent with at least mild pulmonary hypertension. Patient will be treated as clinically appropriate. 4. Alcohol dependency. The patient does have a history of alcohol dependency with active use at home. He has not exhibited any signs of alcohol withdrawal during this hospital stay. VS,Fishbone, I+O VS, Fishbone, I+O Laboratory Tests 12/27/18 05:18 Vital Signs Date Time Temp Pulse Resp B/P (MAP) Pulse Ox O2 Delivery O2 Flow Rate FiO2 12/27/18 16:01 1.0 12/27/18 16:00 97.2 71 18 151/74 (99) 96 12/25/18 06:00 Nasal Cannula I&O- Last 24 Hours up to 6 AM 12/27/18 05:59 Intake Total 1650 ml Output Total 675 ml Balance 975 ml YESENIA GUPTA MD Dec 27, 2018 19:32
[2018-12-27 20:00] VITALS: BP 144/81
[2018-12-27] MEDS: THIAMINE 100 MG TAB PO SCH (20:38)
[2018-12-27] MEDS: ATORVASTATIN 20 MG TAB PO SCH (20:38)
[2018-12-27] MEDS: MIRTAZAPINE 7.5MG PER 1/2 TABLET PO SCH (20:38)
[2018-12-27] MEDS: NICOTINE 14 MG/24 HR TRANSDERMAL TD SCH (20:38)
[2018-12-27] MEDS: LISINOPRIL 5 MG TAB PO SCH (20:39)
[2018-12-28] VITALS (7 sets, daily range): BP systolic 113–142; BP diastolic 65–74
[2018-12-28] MEDS: IPRATROPIUM 0.5MG/ALBUTEROL 2.5MG INH SOL UD 3ML (DUONEB)(J7620) NEB SCH ×4 (01:42→20:34)
[2018-12-28] MEDS: methylPREDNISolone INJ 125 MG/2 ML VIAL (J2930) IV SCH ×3 (03:24→19:23)
[2018-12-28] MEDS: SLF 3 ML SYR IV SCH ×3 (06:10→21:03)
[2018-12-28] MEDS: LEVOTHYROXINE 25MCG TABLET (0.025MG) PO SCH (06:10)
[2018-12-28] MEDS: ASPIRIN 81 MG ENTERIC TAB PO SCH (09:17)
[2018-12-28] MEDS: AZITHROMYCIN 250 MG TAB PO SCH (09:17)
[2018-12-28] MEDS: CEFUROXIME 500 MG TAB PO SCH ×2 (09:17→20:58)
[2018-12-28] MEDS: DOCUSATE SODIUM 100 MG CAP PO SCH ×3 (09:18→21:00)
[2018-12-28] MEDS: HEPARIN SOD (PORCINE) 5000 UNITS/ML VIAL SC SCH ×2 (09:18→21:02)
[2018-12-28] MEDS: FOLIC ACID 1 MG TAB PO SCH (09:18)
[2018-12-28] MEDS: CLOPIDOGREL 75 MG TAB PO SCH (09:18)
--- NOTE | 2018-12-28 19:38 | IPNPDOC ---
Text Note Date of Service The patient was seen on 12/28/18. NOTE SUBJECTIVE: Mr. Bella was admitted with right-sided pneumonia. His FiO2 has been weaned down to 1 L/m. Often he is up to 97% on room air and does not appear to need O2. The patient feels that he does. OBJECTIVE: Please see vital signs below Physical exam: HENT: Neck is supple with no adenopathy or thyromegaly. He does have some scleral injection CV: Regular rate and rhythm with a normal S1 and S2. Respiratory: Patient has bilaterally, good air moment, he has resolution for now of his coarse breath sounds and cough Abdomen: Soft, nontender, nondistended, bowel tones are present. Extremities: Pedal pulses are palpable, trace pitting ankle edema. Neuro: No focal neuromotor or sensory deficits ASSESSMENT/PLAN: 1. Community-acquired pneumonia. Patient has significant right-sided infiltrates. He presented with productive cough. Leukocytosis is improving and blood cultures remain negative to date. The patient had initially been on IV antibiotics in the form of ceftriaxone and azithromycin and is transitioned to oral antibiotics. FiO2 has been weaned down to 1 L/m; the patient is not on oxygen at baseline at home. Patient continues with physical therapy to work on his activity tolerance. Patient did have brief episode of desaturation to 89% with activity on room air, but recovered within minutes. The patient is alarmed and does not feel he is to get ready to be discharged to home. 2.The patient continues on his usual medication regimen to manage his underlying hypertension, coronary artery disease, hypothyroidism, and benign prostatic hypertrophy. In the presence of his pneumonia he does not appear to be having an acute exacerbation of his COPD. 3. Heart failure. Echocardiogram shows preserved left ventricular function with ejection fraction of 65-70%. However, there is right sided hypokinesis consistent with right ventricular systolic dysfunction. Pulmonary artery systolic pressure is 30-40 mmHg, consistent with at least mild pulmonary hypertension. Patient will be treated as clinically appropriate. 4. Alcohol dependency. The patient does have a history of alcohol dependency with active use at home. He has not exhibited any signs of alcohol withdrawal during this hospital stay. VS,Fishbone, I+O VS, Fishbone, I+O Vital Signs Date Time Temp Pulse Resp B/P (MAP) Pulse Ox O2 Delivery O2 Flow Rate FiO2 12/28/18 16:00 0.0 12/28/18 15:23 97.7 83 18 139/68 (91) 90 Room Air I&O- Last 24 Hours up to 6 AM 12/28/18 06:00 Intake Total 1020 ml Output Total 1025 ml Balance -5 ml YESENIA GUPTA MD Dec 28, 2018 19:38
[2018-12-28] MEDS: NICOTINE 14 MG/24 HR TRANSDERMAL TD SCH (20:57)
[2018-12-28] MEDS: THIAMINE 100 MG TAB PO SCH (20:58)
[2018-12-28] MEDS: ATORVASTATIN 20 MG TAB PO SCH (20:58)
[2018-12-28] MEDS: LISINOPRIL 5 MG TAB PO SCH (20:58)
[2018-12-28] MEDS: MIRTAZAPINE 7.5MG PER 1/2 TABLET PO SCH (20:58)
[2018-12-29] VITALS: BP 122/60
[2018-12-29] MEDS: IPRATROPIUM 0.5MG/ALBUTEROL 2.5MG INH SOL UD 3ML (DUONEB)(J7620) NEB SCH ×3 (02:00→13:27)
[2018-12-29 04:00] VITALS: BP 120/58
[2018-12-29] MEDS: methylPREDNISolone INJ 125 MG/2 ML VIAL (J2930) IV SCH ×2 (04:22→11:00)
[2018-12-29 05:42] LABS: HEMATOCRIT 35.3 % (42.0-52.0); HEMOGLOBIN 11.9 g/dl (13.5-17.5); MEAN CORPUSCULAR HEMOGLOBIN 31.4 pg (27.0-33.0); MEAN CORPUSCULAR HGB CONC 33.7 g/dl (32.0-36.5); MEAN CORPUSCULAR VOLUME 93.1 fl (80.0-96.0); PLATELET COUNT, AUTOMATED 370 10^3/uL (150-450); RED BLOOD COUNT 3.79 10^6/uL (4.30-6.10)
[2018-12-29] MEDS: LEVOTHYROXINE 25MCG TABLET (0.025MG) PO SCH (05:54)
[2018-12-29 06:09] LABS: BLOOD UREA NITROGEN 21 MG/DL (7-18); CALCIUM LEVEL 7.7 MG/DL (8.8-10.2); CARBON DIOXIDE LEVEL 32 MEQ/L (21-32); CHLORIDE LEVEL 95 MEQ/L (98-107); GLOMERULAR FILTRATION RATE > 60.0 (>42); GLUCOSE, FASTING 113 MG/DL (70-100); POTASSIUM SERUM 4.5 MEQ/L (3.5-5.1); SODIUM LEVEL 131 MEQ/L (136-145)
[2018-12-29] MEDS: SLF 3 ML SYR IV SCH ×2 (06:28→14:06)
[2018-12-29 08:00] VITALS: BP 132/63
[2018-12-29] MEDS: DOCUSATE SODIUM 100 MG CAP PO SCH (08:26)
[2018-12-29] MEDS: ASPIRIN 81 MG ENTERIC TAB PO SCH (08:26)
[2018-12-29] MEDS: CEFUROXIME 500 MG TAB PO SCH (08:26)
[2018-12-29] MEDS: CLOPIDOGREL 75 MG TAB PO SCH (08:26)
[2018-12-29] MEDS: FOLIC ACID 1 MG TAB PO SCH (08:26)
[2018-12-29] MEDS: AZITHROMYCIN 250 MG TAB PO SCH (08:26)
[2018-12-29] MEDS: HEPARIN SOD (PORCINE) 5000 UNITS/ML VIAL SC SCH (08:27)
[2018-12-29 12:00] VITALS: BP 125/65
[2018-12-29] MEDS ORDERED: AZIT-12 PO (14:42)
[2018-12-29] MEDS ORDERED: PRED20TA PO (14:42)
[2018-12-29] MEDS ORDERED: CEFU50TA PO (14:42)
[2018-12-29] MEDS ORDERED: NICO14PA TD (14:42)
== END 2018-12-29 18:36 | disposition home health service (06) | DRG 194 ==
LOC: M ED 14:59 → M ED INP 19:46 → M PCU 21:50
PROVIDERS: ADMIT Internal Medicine; ATTEND Internal Medicine
DX: J18.9 Pneumonia, unspecified organism (principal); E87.1 Hypo-osmolality and hyponatremia; I50.32 Chronic diastolic (congestive) heart failure; J44.1 Chronic obstructive pulmonary disease with (acute) exacerbation; Z86.73 Personal history of transient ischemic attack (TIA), and cerebral infarction without residual deficits; I25.10 Atherosclerotic heart disease of native coronary artery without angina pectoris; N40.0 Benign prostatic hyperplasia without lower urinary tract symptoms; E03.9 Hypothyroidism, unspecified; Z79.82 Long term (current) use of aspirin; Z79.899 Other long term (current) drug therapy; Z88.0 Allergy status to penicillin; Z88.2 Allergy status to sulfonamides; F17.200 Nicotine dependence, unspecified, uncomplicated; I11.0 Hypertensive heart disease with heart failure; F10.20 Alcohol dependence, uncomplicated

== ENCOUNTER 2019-08-07 02:33 | Inpatient (IN) | payer MEDICARE, OTHER ==
[~2019-08-07] VITALS: Ht 188 cm; Wt 70.1 kg
[~2019-08-07 02:33] MED LIST changes: +ATOR40TA75 PO; +AZIT-12 PO; +B-1100TA2 PO; +CEFU50TA PO; +CLOP75TA2 PO; +CVS10CAP8 PO; +FOLI1TAB11 PO; +LEVO25TA5 PO; +LISI-542 PO; +MIRT1TAB PO; +NICO14PA TD; +PRED20TA PO; +SENN-80 PO; +TEMA15CA2 PO; +VENTAER INH
[2019-08-07 03:14] LABS: BASO # 0.1 10^3/uL (0.0-0.2); BASO % 0.3 % (0.0-1.0); EOS # 0.2 10^3/uL (0.0-0.5); EOS % 0.9 % (0.0-3.0); HEMOGLOBIN 12.7 g/dl (13.5-17.5); LYMPH # 3.3 10^3/uL (1.5-5.0); LYMPH % 18.4 % (24.0-44.0); MEAN CORPUSCULAR HEMOGLOBIN 30.3 pg (27.0-33.0); MEAN CORPUSCULAR HGB CONC 32.6 g/dl (32.0-36.5); MEAN CORPUSCULAR VOLUME 93.1 fl (80.0-96.0); MONO # 1.4 10^3/uL (0.0-0.8); MONO % 7.6 % (0.0-5.0); NEUTROPHILS # 12.9 10^3/uL (1.5-8.5); NEUTROPHILS % 70.8 % (36.0-66.0); PLATELET COUNT, AUTOMATED 341 10^3/uL (150-450); RED BLOOD COUNT 4.19 10^6/uL (4.30-6.10); WHITE BLOOD COUNT 18.2 10^3/uL (4.0-10.0)
[2019-08-07 03:54] LABS: ALBUMIN 2.5 GM/DL (3.2-5.2); ALT/SGPT 33 U/L (12-78); BILIRUBIN,DIRECT 0.2 MG/DL (0.0-0.2); BILIRUBIN,TOTAL 0.4 MG/DL (0.2-1.0); BLOOD UREA NITROGEN 17 MG/DL (7-18); CALCIUM LEVEL 9.3 MG/DL (8.8-10.2); CARBON DIOXIDE LEVEL 35 MEQ/L (21-32); CHLORIDE LEVEL 101 MEQ/L (98-107); CK-MB VALUE MASS 2.1 NG/ML (<3.6); CPK CREATINE PHOSPHOKINASE 32 U/L (39-308); GLOMERULAR FILTRATION RATE > 60.0 (>42); GLUCOSE, FASTING 98 MG/DL (70-100); LIPASE 159 U/L (73-393); MB/CK RELATIVE INDEX 6.56 (< OR =4); POTASSIUM SERUM 4.6 MEQ/L (3.5-5.1); SODIUM LEVEL 139 MEQ/L (136-145); TOTAL PROTEIN 6.2 GM/DL (6.4-8.2); TROPONIN I < 0.02 NG/ML (< 0.10)
[2019-08-07] MEDS: GASTROGRAFIN SOLUTION 30ML PO SCH ×2 (06:32→07:01)
[2019-08-07] MEDS ORDERED: ISOVUE-370 76% 100ML VIAL As Ordered ONE (07:40)
--- NOTE | 2019-08-07 08:11 | REPVR ---
PROCEDURE INFORMATION: Exam: CT Abdomen And Pelvis With Contrast Exam date and time: 08/07/2019 7:56 AM Age: 79 years old Clinical indication: Abdominal pain; Generalized; Additional info: Dysphagia, nausea TECHNIQUE: Imaging protocol: Computed tomography of the abdomen and pelvis with intravenous contrast. Radiation optimization: All CT scans at this facility use at least one of these dose optimization techniques: automated exposure control; mA and/or kV adjustment per patient size (includes targeted exams where dose is matched to clinical indication); or iterative reconstruction. Contrast material: ISOVUE 370; Contrast volume: 100 ml; Contrast route: IV; Other contrast: Oral, Gastrographin, 10ml gastro to 290ml water x 2; COMPARISON: 1. CR Pelvis, complete 11/12/2013 8:[address] Spine, lumbar w/o contrast 11/12/2013 8:04:39 AM FINDINGS: Heart: Heart is shifted to the right. Heart size is within normal limits. Mild pericardial effusion. Coronary arteries: Moderate coronary artery calcification. Lungs: Multifocal consolidations in the right lung. Centrilobular emphysematous lung disease. Liver: Normal. No mass. Gallbladder and bile ducts: Normal. No calcified stones. No ductal dilation. Pancreas: Normal. No ductal dilation. Spleen: Normal. No splenomegaly. Adrenals: Small nodules in the right adrenal gland. Indeterminate nodule in the left adrenal gland measuring 2.2 x 2.3 cm. Kidneys and ureters: No hydronephrosis. Mild nonspecific perinephric stranding bilaterally. Circumscribed hypodense lesions in the left kidney measuring up to 10 mm. Stomach and bowel: Unremarkable. No obstruction. No mucosal thickening. Colonic diverticulosis without diverticulitis. Appendix: Appendix is normal. Intraperitoneal space: Unremarkable. No free air. No significant fluid collection. Vasculature: Moderate atherosclerotic disease. Infrarenal fusiform abdominal aortic aneurysm measuring 4.5 x 3.9 cm. Left common iliac artery measures 2.7 cm. Severe focal stenosis of the right common femoral artery. Moderate focal stenosis of the left common femoral artery. No evidence of arterial rupture. Lymph nodes: Unremarkable. No enlarged lymph nodes. Bladder: Bladder is decompressed. Right common iliac artery measures 2.2 cm. Reproductive: Prostate is normal in size. Bones/joints: Moderate degenerative spine. Chronic mild compression deformity of L1. No acute fracture. Severe degenerative changes of the left hip. Soft tissues: Unremarkable. IMPRESSION: 1. No evidence of bowel obstruction. 2. Infrarenal fusiform abdominal aortic aneurysm. Increased from prior CT from 11/12/2013. Follow-up imaging in 6 months is recommended. In addition to planning follow-up imaging, one should also consider surgical or endovascular referral. 3. Severe focal stenosis of the right common femoral artery. Moderate focal stenosis of the left common femoral artery. 4. Indeterminate nodule in the left adrenal gland. Small nodules in the right adrenal gland. Consistent with previously seen adenomas. 5. Multifocal consolidations in the right lung. Consistent with pneumonia. 6. Circumscribed hypodense lesions in the left kidney. Consistent with benign renal cyst. No follow-up is necessary. Electronically signed by: Dana Cox On 08/07/2019 08:11:49 AM
--- NOTE | 2019-08-07 08:11 | ECGEPIP ---
[facility] - ED Test Date: 2019-08-07 Pat Name: CYRIL MITTAL Department: Room: - Gender: Male [employer]: TOMAS : 1940 Requested By: LONDON Higgins Order Number: [id number] Reading MD: Torres Castillo Measurements Intervals [place] Rate: 73 P: 22 UT: 200 QRS: 153 QRSD: 155 T: 46 QT: 385 QTc: 426 Interpretive Statements SINUS RHYTHM RIGHT AXIS DEVIATION RIGHT BUNDLE BRANCH BLOCK SIMILAR TO 12/22/18 Electronically Signed on 08-07-2019 8:10:57 EDT by Torres Castillo
[2019-08-07] MEDS ORDERED: NS 1,000 ML IV ONE (08:30)
[2019-08-07] MEDS ORDERED: LevoFLOXacin IV 750 MG in IV 1 EA IV ONE (08:30)
[2019-08-07] MEDS ORDERED: TEMA15CA2 PO (08:40)
[2019-08-07] MEDS ORDERED: ALBUTEROL 90 MCG/ACT 8GM HFA INHALER INH PRN (10:00)
[2019-08-07 10:24] LABS: C REACTIVE PROTEIN QUANTITATIV 4.54 MG/DL (0.00-0.30)
[2019-08-07 10:33] LABS: ERYTHROCYTE SEDIMENTATION RATE 58 mm/hr (0-20)
[2019-08-07 11:42] VITALS: BP 128/78
[2019-08-07] MEDS ORDERED: amLODIPine 10 MG TAB PO ONE (11:45)
[2019-08-07] MEDS: NICOTINE 21MG/24HR 1 EA TRANSDERMAL TD SCH (12:07)
[2019-08-07] MEDS: LEVOTHYROXINE 25MCG TABLET (0.025MG) PO SCH (12:07)
[2019-08-07] MEDS: MEROPENEM INJ 1 GM in IV 1 EA IV SCH ×2 (12:07→18:45)
[2019-08-07] MEDS: LACTOBACILLUS ACIDOPHILUS CAP (BACID) PO SCH ×2 (12:07→18:00)
[2019-08-07] MEDS: NS 1,000 ML IV SCH ×2 (12:08→21:31)
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
[2019-08-07 14:05] VITALS: BP 127/74
--- NOTE | 2019-08-07 14:17 | REP ---
CT CHEST WITHOUT IV CONTRAST: CT chest performed without IV contrast. Sagittal and coronal reconstruction images are performed. Comparison made with prior study of 01/06/2018. There are scattered patchy infiltrates throughout the right mid and lower lung. Infiltrates are heavier in the inferior aspect of the right middle and lower lobes. There are secretions and mucous in the lower trachea just above the nancy and in the right mainstem bronchus. There are some minor atelectasis or infiltrate at the anterior left cardiophrenic angle. Emphysematous changes are noted bilaterally predominantly in the upper lobes. There are a few calcified pleural plaques on the left. There is a tiny calcified granuloma in the left lobe peripherally. No significant axillary or mediastinal adenopathy is seen. There is atherosclerotic calcification of the thoracic aorta. There is mild ectasia of the ascending thoracic aorta at 4.3 cm in diameter. The heart is not enlarged. There is some very mild pericardial thickening/fluid. No pleural effusion is seen. There are degenerative changes of the spine with a few mild old chronic compression deformities of the visualized vertebral bodies. IMPRESSION: Scattered patchy infiltrates in the right mid and lower lung zones, most significantly in the inferior aspect of the right middle and lower lobes. There are secretions and mucous in the lower trachea and right mainstem bronchus. There are some very mild atelectasis or infiltrate in the left cardiophrenic angle. Electronically Signed by Beto Schroeder MD 08/07/2019 02:56 P
[2019-08-07 14:29] LABS: CK-MB VALUE MASS 2.5 NG/ML (<3.6); CPK CREATINE PHOSPHOKINASE 41 U/L (39-308); TROPONIN I < 0.02 NG/ML (< 0.10)
[2019-08-07 18:00] VITALS: BP 125/72
[2019-08-07] MEDS: ATORVASTATIN 20 MG TAB PO SCH (20:43)
[2019-08-07] MEDS: TEMAZEPAM 15 MG CAP PO SCH (20:43)
[2019-08-07] MEDS ORDERED: ONDANSETRON 4 MG ORAL DISINTEGRATING TAB PO PRN (20:45)
[2019-08-07] MEDS ORDERED: MIRTAZAPINE 7.5MG PER 1/2 TABLET PO SCH (21:00)
[2019-08-07 22:00] VITALS: BP 136/77
[2019-08-08] VITALS (7 sets, daily range): BP systolic 99–130; BP diastolic 54–70
[2019-08-08] MEDS: MEROPENEM INJ 1 GM in IV 1 EA IV SCH (02:25)
[2019-08-08] MEDS: LEVOTHYROXINE 25MCG TABLET (0.025MG) PO SCH (05:44)
[2019-08-08] MEDS: NS 1,000 ML IV SCH ×2 (08:00→16:54)
[2019-08-08] MEDS ORDERED: ESCITALOPRAM OXALATE 10 MG TAB (LEXAPRO) PO SCH (09:00)
[2019-08-08] MEDS ORDERED: amLODIPine 10 MG TAB PO SCH (09:00)
[2019-08-08] MEDS ORDERED: CIPROFLOXACIN 500MG TABLET PO SCH (09:00)
[2019-08-08] MEDS: metroNIDAZOLE (FLAGYL) 500 MG TAB PO SCH ×3 (09:11→21:59)
[2019-08-08] MEDS: LINEZOLID 600MG TABLET (ZYVOX) PO SCH ×2 (09:12→22:00)
[2019-08-08] MEDS: LACTOBACILLUS ACIDOPHILUS CAP (BACID) PO SCH ×2 (09:12→16:54)
[2019-08-08] MEDS: NICOTINE 21MG/24HR 1 EA TRANSDERMAL TD SCH (09:12)
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
[2019-08-08] MEDS: ATORVASTATIN 20 MG TAB PO SCH (21:59)
[2019-08-08] MEDS: TEMAZEPAM 15 MG CAP PO SCH (22:24)
[2019-08-09 02:00] VITALS: BP 118/70
[2019-08-09] MEDS: NS 1,000 ML IV SCH (04:00)
[2019-08-09] MEDS: LevoFLOXacin 750 MG TABLET PO SCH (05:41)
[2019-08-09] MEDS: LEVOTHYROXINE 25MCG TABLET (0.025MG) PO SCH (05:41)
[2019-08-09 06:00] VITALS: BP 118/72
[2019-08-09 07:06] LABS: BASO % 0.4 % (0.0-1.0); EOS # 0.1 10^3/uL (0.0-0.5); EOS % 1.1 % (0.0-3.0); HEMOGLOBIN 12.5 g/dl (13.5-17.5); LYMPH # 1.9 10^3/uL (1.5-5.0); MEAN CORPUSCULAR HEMOGLOBIN 30.6 pg (27.0-33.0); MEAN CORPUSCULAR HGB CONC 32.1 g/dl (32.0-36.5); MEAN CORPUSCULAR VOLUME 95.6 fl (80.0-96.0); MONO % 8.5 % (0.0-5.0); NEUTROPHILS # 8.2 10^3/uL (1.5-8.5); NEUTROPHILS % 72.3 % (36.0-66.0); PLATELET COUNT, AUTOMATED 302 10^3/uL (150-450); RED BLOOD COUNT 4.08 10^6/uL (4.30-6.10); WHITE BLOOD COUNT 11.4 10^3/uL (4.0-10.0)
[2019-08-09 07:27] LABS: BLOOD UREA NITROGEN 12 MG/DL (7-18); CALCIUM LEVEL 8.1 MG/DL (8.8-10.2); CARBON DIOXIDE LEVEL 33 MEQ/L (21-32); CHLORIDE LEVEL 102 MEQ/L (98-107); CREATININE FOR GFR 0.92 MG/DL (0.70-1.30); GLOMERULAR FILTRATION RATE > 60.0 (>42); GLUCOSE, FASTING 87 MG/DL (70-100); POTASSIUM SERUM 3.9 MEQ/L (3.5-5.1); SODIUM LEVEL 138 MEQ/L (136-145)
--- NOTE | 2019-08-09 08:50 | ECHO ---
DATE OF STUDY: 08/08/2019 REFERRING PHYSICIAN: Dr. Stefania Aggarwal INDICATION: Pericardial effusion. HEIGHT: 189 cm. WEIGHT: 70 kg. 2-D MEASUREMENTS: Aortic root: 4.4 cm Ventricular septum: 0.95 cm Posterior wall: 1.20 cm Left ventricle diastole: 3.6 cm Left atrium: 2.5 cm LVOT: 2.3 cm Inferior vena cava: 1.0 cm (more than 50% respiratory variation) DOPPLER MEASUREMENTS: No aortic regurgitation No aortic stenosis Aortic valve velocity: 100 cm/sec No mitral regurgitation Mitral E velocity 64.3 cm/sec Mitral A velocity: 89.1 cm/sec Mitral deceleration time: 298 ms Mild tricuspid regurgitation Estimated right ventricular systolic pressure 41-46 mmHg Trace pulmonic regurgitation Pulmonary acceleration time: 87 ms MITRAL ANNULAR TISSUE DOPPLER: E prime septal: 7.5 cm/sec DESCRIPTION: The rhythm was sinus with right bundle branch block morphology. This was a moderately technically difficult echocardiogram which was performed with the patient supine. Suprasternal window was acoustically technically difficult and images could not be obtained from that window. This was a 2-D, M-mode, color flow Doppler and pulse wave Doppler examination and included mitral annular tissue Doppler. CONCLUSIONS: 1. Normal left ventricle internal dimensions and wall thickness. Normal regional LV wall motion and wall thickening. Normal LV systolic function. LVEF 70% by visual estimate. Grade 1 diastolic dysfunction (impaired relaxation and filling pattern). 2. Tiny pericardial effusion. No diastolic chamber collapse. 3. Suggestive of moderate elevation of estimated right ventricle systolic pressure. Normal right ventricle cavity size. Mild right ventricle hypertrophy. 4. Mild dilatation of the aortic root at the level of the sinus of Valsalva. 5. Moderate aortic valve sclerosis of a 3-cuspid aortic valve. No aortic stenosis or regurgitation.
[2019-08-09] MEDS: metroNIDAZOLE (FLAGYL) 500 MG TAB PO SCH ×3 (09:51→20:20)
[2019-08-09] MEDS: LACTOBACILLUS ACIDOPHILUS CAP (BACID) PO SCH ×2 (09:51→18:22)
[2019-08-09] MEDS: NICOTINE 21MG/24HR 1 EA TRANSDERMAL TD SCH (09:51)
[2019-08-09] MEDS: LINEZOLID 600MG TABLET (ZYVOX) PO SCH ×2 (09:51→20:20)
[2019-08-09 10:00] VITALS: BP 112/65
[2019-08-09 14:00] VITALS: BP 131/65
--- NOTE | 2019-08-09 15:11 | REP ---
CT BRAIN WITHOUT CONTRAST: HISTORY: Head trauma. Suicide attempt with repeated head banging. Comparison head CT study is from April 25, 2013. CT FINDINGS: Digital preliminary broaching machine set up operator radiograph is unremarkable. On bone window settings, the bony calvarium is intact. There is mild vascular calcification in the carotid siphons bilaterally. There is no visible skull fracture. No scalp hematoma is appreciated. On soft tissue window settings there is generalized volume loss which is unchanged from the comparison study. There is no evidence of subdural or epidural hematoma. No parenchymal hemorrhage is seen. No acute infarction is seen. There are small vessel periventricular white matter changes again noted. IMPRESSION: Vascular calcification, diffuse atrophy, and small vessel changes again noted. No skull fracture, intracranial hemorrhage, or other acute intracranial abnormality. Electronically Signed by Francisco Alas MD 08/09/2019 04:14 P
[2019-08-09 18:00] VITALS: BP 107/69
[2019-08-09 19:45] VITALS: BP 117/69
[2019-08-09] MEDS: TEMAZEPAM 15 MG CAP PO SCH ×2 (20:20→22:34)
[2019-08-09] MEDS: ATORVASTATIN 20 MG TAB PO SCH (20:20)
--- NOTE | 2019-08-09 22:49 | IPN ---
DATE: 08/09/2019 Patient is seen at the bedside. He has finished his diet without any nausea, vomiting, or abdominal pain. Patient says he still has occasional cough productive of sputum but has decreased. No fever or chills overnight. Patient says that he is feeling much better this morning. Denies any suicidal ideation. When asked why he decided to try to commit suicide 3 days ago, the patient says, "I don't know." He is currently willing to have the peripheral IV line to be placed if needed, and he also is agreeable to seeing a psychiatrist today to further evaluate his suicide attempt by trying to smash his head into the floor, as well as wrapping the oxygen tubing around his neck, trying to break his glasses to slit his throat. Sitter has been in place. He has no new complaints. He is currently saturating 94% on 2 liters of oxygen. IV fluids have been discontinued, and his diet has been advanced. Temperature is 96.5, pulse 70, respiratory rate 18, blood pressure 112/65, 94% on 2 liters nasal cannula. Generally, patient is awake, alert, oriented to person, place. He has no jugular venous distention (JVD), no thyromegaly. Dry mucous membranes. Poor dentition. Lungs: Diminished, right-sided basilar crackles, left is clear. Heart: S1, S2, sinus rhythm. No murmurs, rubs or gallops. Abdomen is soft, nontender, nondistended. Positive bowel sounds times four quadrants. No rebound or guarding. Patient has an abdominal bruit that is noted. Extremities: No cyanosis, clubbing or pitting edema. Patient's skin is warm, dry, well perfused. Skin is pink in color. LABORATORY DATA: White count 11.4, hemoglobin 12.5, hematocrit 39, platelet count 302. Sodium 138, potassium 3.2, chloride 102, bicarbonate 33, BUN 12, creatinine 0.92, glucose of 87, troponin 0.02. Blood culture 08/07/2019: Gram-positive cocci in clusters. Repeat blood culture is pending. Blood culture 08/07/2019: No growth after 48 hours. ASSESSMENT AND PLAN: This is a 79-year-old male, DO NOT RESUSCITATE/DO NOT INTUBATE, active smoker, over 100 pack-year history of smoking, chronic obstructive pulmonary disease (COPD), coronary artery disease, BPH, hypertension, hypothyroidism, prior history of pneumonia, presents with bilateral lower quadrant abdominal pain. CT chest showed right lower lobe pneumonia and CT abdomen and pelvis showed focal stenosis of right common femoral, moderate stenosis of left common femoral with infrarenal fusiform abdominal aortic aneurysm. Patient's abdominal pain has resolved. He has been placed on antibiotics for his right lower lobe pneumonia but became suicidal on arrival to the floor with three attempts to harm himself. ACTIVE ISSUES: 1. Severe depression with suicidal attempt times three. Patient on arrival to the medical floor locked himself in the bathroom and smashed his head on the floor, refused CT of the head at that time. Then, placed oxygen tubing around his neck and tried to hang himself and at the same grabbed his eyeglasses to smash the glass in order to slit his throat. A sitter has been placed. The patient is open to seeing a psychiatrist today. Dr. Yanez has been consulted. He currently denies any triggers that could have brought this on, but says "Covid." 2. Bilateral lower quadrant abdominal pain. Currently pain free. CT abdomen shows no mesenteric ischemia. General Surgeon, Dr. Mancera, had looked at the CT abdomen and pelvis on admission in the emergency room (ER) and felt that the patient did not have any mesenteric ischemia. Dr. Richmond, Interventional Radiologist, available on admission on 08/07/2019 suggested outpatient followup for the lower extremity stenosis. No acute indication for any intervention at this time but to continue to monitor. Patient was given meropenem on arrival, but removed his IV site and has been changed to Cipro/Flagyl yesterday on 08/08/2019. He has subsequently been changed for better coverage for the pneumonia to Levaquin orally and continued on Flagyl orally. He has no fever, no white count, currently feels well. 3. Right middle lobe/lower lobe pneumonia. Previously on meropenem on 08/07/2019 after IV site had been pulled out by the patient. He was switched over to Cipro/Flagyl on 08/08/2019 but subsequently changed to Levaquin for broader coverage. At this time, the patient is afebrile, still has a persistent cough productive of sputum but decreased. He is feeling well today. He is on nebulizers every 4 hours as needed, Levaquin and supplemental oxygen. IV fluids have been discontinued since we have advanced his diet. 4. Gram-positive bacteremia. Patient is on Zyvox. This was noted on one of two sets of blood cultures on 08/07/2019 and was started on Zyvox on 08/08/2019 and to be continued until the organism has been identified. 5. Sepsis secondary to pneumonia. Patient has been afebrile with improved white count, being treated with oral Levaquin at this time. 6. Suicide attempt and severe depression. Patient refused to see a psychiatrist on 08/07/2019; today he is agreeable to be evaluated for severe depression and suicide attempt. I have spoken with his sister, Stefania Cuevas, who indicated that the patient has been having a significant amount of weight loss, unable to gain it for the past 1 month. Defer to psychiatrist for inpatient mental health unit admission. 7. Bilateral femoral artery stenosis/peripheral arterial disease due to longstanding smoker. He still actively smokes cigarettes. Interventional Radiology, Dr. Richmond, suggested outpatient followup with her once the patient is clinically stable for hospital discharge. There are no signs of an ischemic limb at this time. He has got good perfusion despite moderately severe stenosis. 8. Active tobacco use. Cessation counseling and nicotine patch have been given. 9. Infrarenal abdominal aortic aneurysm with recommendations to recheck in 6 months, either an abdominal ultrasound or CT abdomen and pelvis and outpatient followup with vascular surgeon. Monitor patient's blood pressure and adequately controlled at the moment. 10. Abnormal EKG with chronic right bundle branch block with abnormal cardiac markers. No chest pain at this time. No other issues. 11. Head trauma. Still refused to have CT of the head done; "I feel fine." 12. Uncontrolled hypertension. Currently stable. Patient has been given morphine, resume back on lisinopril monitoring for low blood pressure. 13. Deep vein thrombosis (DVT) prophylaxis. On compression stockings. 14. Hypothyroidism. On Synthroid. CODE STATUS: DO NOT RESUSCITATE, DO NOT INTUBATE. DIET: Increase to soft mechanical diet. MTDD
[2019-08-10] MEDS: LevoFLOXacin 750 MG TABLET PO SCH (05:58)
[2019-08-10] MEDS: LEVOTHYROXINE 25MCG TABLET (0.025MG) PO SCH (05:58)
[2019-08-10 06:16] VITALS: BP 117/69
[2019-08-10 07:04] LABS: BASO % 0.2 % (0.0-1.0); EOS # 0.1 10^3/uL (0.0-0.5); EOS % 0.5 % (0.0-3.0); HEMATOCRIT 38.7 % (42.0-52.0); HEMOGLOBIN 12.5 g/dl (13.5-17.5); LYMPH # 2.6 10^3/uL (1.5-5.0); LYMPH % 19.1 % (24.0-44.0); MEAN CORPUSCULAR HEMOGLOBIN 30.5 pg (27.0-33.0); MEAN CORPUSCULAR HGB CONC 32.3 g/dl (32.0-36.5); MEAN CORPUSCULAR VOLUME 94.4 fl (80.0-96.0); MONO # 1.2 10^3/uL (0.0-0.8); MONO % 8.7 % (0.0-5.0); NEUTROPHILS # 9.4 10^3/uL (1.5-8.5); NEUTROPHILS % 70.4 % (36.0-66.0); PLATELET COUNT, AUTOMATED 344 10^3/uL (150-450); WHITE BLOOD COUNT 13.3 10^3/uL (4.0-10.0)
[2019-08-10 07:26] LABS: BLOOD UREA NITROGEN 14 MG/DL (7-18); CALCIUM LEVEL 8.2 MG/DL (8.8-10.2); CARBON DIOXIDE LEVEL 33 MEQ/L (21-32); CHLORIDE LEVEL 101 MEQ/L (98-107); CREATININE FOR GFR 1.02 MG/DL (0.70-1.30); GLOMERULAR FILTRATION RATE > 60.0 (>42); GLUCOSE, FASTING 89 MG/DL (70-100); POTASSIUM SERUM 4.1 MEQ/L (3.5-5.1); SODIUM LEVEL 139 MEQ/L (136-145)
[2019-08-10] MEDS: LACTOBACILLUS ACIDOPHILUS CAP (BACID) PO SCH ×2 (08:09→18:01)
[2019-08-10] MEDS: metroNIDAZOLE (FLAGYL) 500 MG TAB PO SCH ×3 (08:09→20:14)
[2019-08-10] MEDS: LINEZOLID 600MG TABLET (ZYVOX) PO SCH (08:09)
[2019-08-10] MEDS: NICOTINE 21MG/24HR 1 EA TRANSDERMAL TD SCH (08:09)
[2019-08-10 14:00] VITALS: BP 120/68
[2019-08-10 19:55] VITALS: BP 119/68
[2019-08-10] MEDS: TEMAZEPAM 15 MG CAP PO SCH (20:14)
[2019-08-10] MEDS: ATORVASTATIN 20 MG TAB PO SCH (20:14)
[2019-08-11] MEDS: LevoFLOXacin 750 MG TABLET PO SCH (06:14)
[2019-08-11] MEDS: LEVOTHYROXINE 25MCG TABLET (0.025MG) PO SCH (06:14)
[2019-08-11 07:01] VITALS: BP 138/83
[2019-08-11 07:40] LABS: BASO % 0.2 % (0.0-1.0); EOS # 0.1 10^3/uL (0.0-0.5); EOS % 0.5 % (0.0-3.0); HEMOGLOBIN 14.3 g/dl (13.5-17.5); LYMPH # 2.7 10^3/uL (1.5-5.0); LYMPH % 20.2 % (24.0-44.0); MEAN CORPUSCULAR HEMOGLOBIN 30.8 pg (27.0-33.0); MEAN CORPUSCULAR HGB CONC 33.3 g/dl (32.0-36.5); MEAN CORPUSCULAR VOLUME 92.7 fl (80.0-96.0); MONO # 1.1 10^3/uL (0.0-0.8); MONO % 8.3 % (0.0-5.0); NEUTROPHILS # 9.3 10^3/uL (1.5-8.5); NEUTROPHILS % 69.8 % (36.0-66.0); PLATELET COUNT, AUTOMATED 376 10^3/uL (150-450); RED BLOOD COUNT 4.64 10^6/uL (4.30-6.10); WHITE BLOOD COUNT 13.3 10^3/uL (4.0-10.0)
[2019-08-11] MEDS: NICOTINE 21MG/24HR 1 EA TRANSDERMAL TD SCH (07:55)
[2019-08-11] MEDS: metroNIDAZOLE (FLAGYL) 500 MG TAB PO SCH ×3 (07:55→21:00)
[2019-08-11] MEDS: LACTOBACILLUS ACIDOPHILUS CAP (BACID) PO SCH ×2 (07:55→17:01)
[2019-08-11 07:57] LABS: BLOOD UREA NITROGEN 12 MG/DL (7-18); CALCIUM LEVEL 8.6 MG/DL (8.8-10.2); CARBON DIOXIDE LEVEL 30 MEQ/L (21-32); CHLORIDE LEVEL 102 MEQ/L (98-107); CREATININE FOR GFR 1.06 MG/DL (0.70-1.30); GLOMERULAR FILTRATION RATE > 60.0 (>42); GLUCOSE, FASTING 90 MG/DL (70-100); POTASSIUM SERUM 4.4 MEQ/L (3.5-5.1); SODIUM LEVEL 138 MEQ/L (136-145)
[2019-08-11] MEDS ORDERED: SIMETHICONE 80 MG CHEW TAB PO SCH (13:00)
[2019-08-11 14:00] VITALS: BP 114/69
--- NOTE | 2019-08-11 14:25 | IPNPDOC ---
Date Seen The patient was seen on 08/11/19. Progress Note c/o feeling bloated, but tolerated his diet without n/v/abd pain. no fever, chills. still w cough w scant sputum production. he c/o increased abdominal distension today, but passing gas. PE: VS: see below Generally, sitting in bed at 45 degrees . patient is awake, alert, oriented to person, place. He has no jugular venous distention (JVD), no thyromegaly. Dry mucous membranes. Poor dentition. Lungs: Diminished, right-sided basilar crackles, left is clear. Heart: S1, S2, sinus rhythm. No murmurs, rubs or gallops. Abdomen is soft, nontender, distended. Positive bowel sounds times four quadrants. No rebound or guarding. Patient has an abdominal bruit that is noted. Extremities: No cyanosis, clubbing or pitting edema. Patient's skin is warm, dry, well perfused. Skin is pink in color. LABORATORY DATA:,IMAGING STUDIES, MICROBIOLOGY SEE BELOW ASSESSMENT AND PLAN: This is a 79-year-old male, DO NOT RESUSCITATE/DO NOT INTUBATE, active smoker, over 100 pack-year history of smoking, chronic obstructive pulmonary disease (COPD), coronary artery disease, BPH, hypertension, hypothyroidism, prior history of pneumonia, presents with bilateral lower quadrant abdominal pain. CT chest showed right lower lobe pneumonia and CT abdomen and pelvis showed focal stenosis of right common femoral, moderate stenosis of left common femoral with infrarenal fusiform abdominal aortic aneurysm. Patient's abdominal pain has resolved. He has been placed on antibiotics for his right lower lobe pneumonia but became suicidal on arrival to the floor with three attempts to harm himself. Severe depression with suicidal attempt times three. A sitter has been placed. Dr. Yanez has been consulted. will need [facility] admission once medically stable. defer to psychiatrist to determine if pt can be discharged home. Right middle lobe/lower lobe pneumonia. s/p meropenem on 08/07/2019 after IV was pulled out by the patient, he was given oral Cipro/Flagyl on 08/08/2019 but subsequently changed to Levaquin for broader coverage. on nebulizers every 4 hours as needed, and saturating well on room air. Contaminated blood culture with Staph epi bacteremia 1/2 sets of blood cx on admission. afebrile. s/p Zyvo on 08/08/2019 and 08/09/19, discontinued 08/10/19 . Sepsis secondary to pneumonia. Patient has been afebrile with improved white count, being treated with oral Levaquin at this time. Suicide attempt Defer to psychiatrist for inpatient mental health unit admission. Weight loss TSH wnl. pt has become frustrated about not being able to gain weight for the past month, per Stefania Cuevas, pt's sister. CT abd-no colonic mass. outpt pcp can refer to GI for outpt colonoscopy, and workup for malignancy focusing on symptoms. Bilateral femoral artery stenosis/peripheral arterial disease due to longstanding smoker. He still actively smokes cigarettes. Interventional Radiology, Dr. Richmond, suggested outpatient followup with her once the patient is clinically stable for hospital discharge. There are no signs of an ischemic limb at this time. He has got good perfusion despite moderately severe stenosis. Active tobacco use. Cessation counseling and nicotine patch have been given. Infrarenal abdominal aortic aneurysm with recommendations to recheck in 6 months, either an abdominal ultrasound or CT abdomen and pelvis and outpatient followup with vascular surgeon. Monitor patient's blood pressure and adequately controlled at the moment. Abnormal EKG with chronic right bundle branch block with abnormal cardiac markers. No chest pain at this time. No other issues. Head trauma due to self-induced suicide attempt by banging his head on bathroom sink and floor. CT head negative. Uncontrolled hypertension. Currently stable. Patient has been given morphine, resume back on lisinopril monitoring for low blood pressure. Deep vein thrombosis (DVT) prophylaxis. On compression stockings. Hypothyroidism. On Synthroid. Abdominal bloating. CT abd on admission without signs of ischemia, and reviewed by both IR and General Surgery. no acute abdomen. check AXR and lactic acid. prn simethicone. CODE STATUS: DO NOT RESUSCITATE, DO NOT INTUBATE. VS, I&O, 24H, Fishbone Vital Signs/I&O Vital Signs Date Time Temp Pulse Resp B/P (MAP) Pulse Ox O2 Delivery O2 Flow Rate FiO2 08/11/19 07:01 97.2 85 20 138/83 (101) 89 Room Air 08/09/19 21:00 2.0 I&O- Last 24 Hours up to 6 AM 08/11/19 06:00 Intake Total 1350 ml Output Total 225 ml Balance 1125 ml Laboratory Data 24H LABS Laboratory Tests 2 08/11/19 07:11: Immature Granulocyte % (Auto) 1.0, Neutrophils (%) (Auto) 69.8H, Lymphocytes (%) (Auto) 20.2L, Monocytes (%) (Auto) 8.3H, Eosinophils (%) (Auto) 0.5, Basophils (%) (Auto) 0.2, Neutrophils # (Auto) 9.3H, Lymphocytes # (Auto) 2.7, Monocytes # (Auto) 1.1H, Eosinophils # (Auto) 0.1, Basophils # (Auto) 0.0, Nucleated Red Blood Cells % (auto) 0.0, Anion Gap 6L, Glomerular Filtration Rate > 60.0, C alcium Level 8.6L CBC/BMP Laboratory Tests 08/11/19 07:11 Microbiology Microbiology 08/10/19 Gram Stain - Final, Resulted 08/10/19 Sputum Culture - Preliminary, Resulted Yeast Like Organism 08/10/19 Blood Culture - Preliminary, Resulted No growth after 24 hours . All specim... 08/09/19 Blood Culture - Preliminary, Resulted No Growth after 48 hours. All Specime... 08/07/19 Blood Culture - Final, Complete Staphylococcus Epidermidis 08/07/19 Blood Culture - Preliminary, Resulted No Growth after 72 hours. All specime... STEFANIA JIMENEZ MD August 11, 2019 14:13
--- NOTE | 2019-08-11 15:02 | IPN ---
DATE: 08/10/2019 Patient has no new complaints. He is tolerating his diet well without abdominal pain. He currently has decrease in his cough, a decrease in sputum production, still white and thick. No fever or chills overnight. The patient does not have anymore suicidal ideation or suicidal statements. Per sitter at the bedside, he has not attempted to do any harm to himself for the past 48 hours. Patient understands that a psychiatric consultation is necessary, and he will need to spend some time in the inpatient mental health unit once he is medically cleared. Blood culture grew out Staphylococcus (staph) epidermidis, one of two sets, on 08/07/2019. Patient has not had any type of instrumentation and deemed to most likely be contaminated. Patient is currently on Zyvox, which we will discontinue. No sputum culture is currently available. Patient was agreeable to obtaining a CT of the head yesterday, which was negative, status post intentional trauma due to severe depression and suicide attempt from 4 days ago. PHYSICAL EXAM: Temperature 97.7, pulse 72, respiratory rate 18, blood pressure 117/69, 88% on room air. Awake, alert, oriented to person, place and time. Neck is supple, full range of motion. No thyromegaly or cervical lymphadenopathy. Missing teeth. Dry mucous membranes. Lungs: Diminished with right basilar crackles. Heart: S1, S2, sinus rhythm. Abdomen is soft, nontender, nondistended. Extremities: No cyanosis, clubbing or pitting edema. Laboratory data, microbiology, imaging studies have been reviewed. ASSESSMENT AND PLAN: A 79-year-old with DO NOT RESUSCITATE/DO NOT INTUBATE with more than 100 pack-year history of smoking, chronic obstructive pulmonary disease (COPD), coronary artery disease, BPH, hypertension, hypothyroidism, pneumonia, presented with bilateral lower quadrant pain and shortness of breath, found on CT to have a right lower lobe pneumonia and focal stenosis on CT abdomen and pelvis of right common femoral, moderate stenosis of left common femoral and abdominal aortic aneurysm. Patient's abdominal pain has resolved. He is currently on antibiotics for right lower lobe pneumonia. Blood culture grew out Gram-positive and turns out to be a Staphylococcus epidermidis (staph epi) most likely contaminant and had received Zyvox. IMPRESSION: 1. Severe depression with suicide attempt times three. On arrival, patient locked himself in the bathroom and smashed his head on the sink and on the floor. CT of the head was negative. Patient placed oxygen tube around his neck, tried to hang himself and grabbed his eyeglasses to smash the glass to slit his throat. He currently has a sitter. Dr. Yanez has been consulted. When asked what triggered his suicide attempt, patient said, "COVID." The patient had a heated conversation with his ex- on the telephone prior to locking himself in the bathroom. When asked about what transpired, the patient says that they are filing for bankruptcy, and she was wanting to figure out who the private equity analyst was to do this. He says that the financial issues did not force him to attempt to commit suicide. 2. Right middle lobe, lower lobe pneumonia. Previously on meropenem 08/07/2019. Patient removed his IV peripheral line, switched over to Cipro, Flagyl 08/08/2019 and changed to Levaquin for broader coverage on the same day. He has remained afebrile with decreasing white count but slightly increased today. He is on nebulizers, Levaquin. IV fluids have been discontinued as we had advanced his diet. 3. Bilateral lower quadrant abdominal pain. CT abdomen showed no mesenteric ischemia, as reviewed by general surgeon on admission. Interventional Radiology (IR), Dr. Richmond, also recommended outpatient followup, no acute intervention required as the patient currently is stable from these stenosis. 4. Staphylococcus epidermidis bacteremia. Most likely contaminant. Patient was given Zyvox, which was started on 08/08/2019 to 08/10/2019. Will continue to monitor clinically. 5. Sepsis secondary to pneumonia. Patient has been afebrile. Slight increase in white count today, on oral Levaquin. Flagyl will be continued for questionable aspiration. 6. Bilateral femoral artery stenosis, peripheral arterial disease due to longstanding smoking. Still actively smokes cigarettes. IR, Dr. Richmond, suggested outpatient followup. There are no signs of acute ischemia requiring intervention during the hospital stay. 7. Active tobacco abuse. Counseling about cessation, nicotine patch have been provided. 8. Infrarenal abdominal aortic aneurysm. Recheck imaging study in 6 months and outpatient vascular surgical referral. 9. Abnormal EKG with chronic right bundle branch block. No acute ischemic symptoms. 10. Head trauma. CT of the head is negative. 11. Hypertension. Back on lisinopril. 12. Deep vein thrombosis (DVT) prophylaxis. On compression stockings. 13. Code STatus: DO NOT RESUSCITATE/DO NOT INTUBATE (DNR/DNI). 14. Hypothyroidism. On chronic Synthroid. DISPOSITION: Await physical therapy (PT) clearance and monitoring of patient's white count. Once cleared by physical therapy and white count is decreasing, while remaining afebrile, may transfer to inpatient mental health unit ([facility]) in 1-2 days. MTDD
[2019-08-11] MEDS: SIMETHICONE 80 MG CHEW TAB PO SCH ×2 (17:01→21:01)
[2019-08-11 20:00] VITALS: BP 118/70
[2019-08-11] MEDS: TEMAZEPAM 15 MG CAP PO SCH (21:00)
[2019-08-11] MEDS: ATORVASTATIN 20 MG TAB PO SCH (21:01)
[2019-08-12 06:00] VITALS: BP 128/65
[2019-08-12] MEDS: LEVOTHYROXINE 25MCG TABLET (0.025MG) PO SCH (06:23)
[2019-08-12] MEDS: LevoFLOXacin 750 MG TABLET PO SCH (06:24)
[2019-08-12 06:59] LABS: BASO % 0.3 % (0.0-1.0); EOS # 0.1 10^3/uL (0.0-0.5); EOS % 0.7 % (0.0-3.0); HEMATOCRIT 37.5 % (42.0-52.0); HEMOGLOBIN 12.4 g/dl (13.5-17.5); LYMPH # 2.2 10^3/uL (1.5-5.0); MEAN CORPUSCULAR HEMOGLOBIN 30.5 pg (27.0-33.0); MEAN CORPUSCULAR HGB CONC 33.1 g/dl (32.0-36.5); MEAN CORPUSCULAR VOLUME 92.4 fl (80.0-96.0); NEUTROPHILS # 6.6 10^3/uL (1.5-8.5); NEUTROPHILS % 66.7 % (36.0-66.0); PLATELET COUNT, AUTOMATED 346 10^3/uL (150-450); RED BLOOD COUNT 4.06 10^6/uL (4.30-6.10); WHITE BLOOD COUNT 9.9 10^3/uL (4.0-10.0)
[2019-08-12 07:29] LABS: BLOOD UREA NITROGEN 13 MG/DL (7-18); CALCIUM LEVEL 7.9 MG/DL (8.8-10.2); CARBON DIOXIDE LEVEL 29 MEQ/L (21-32); CHLORIDE LEVEL 103 MEQ/L (98-107); CREATININE FOR GFR 0.95 MG/DL (0.70-1.30); GLOMERULAR FILTRATION RATE > 60.0 (>42); GLUCOSE, FASTING 80 MG/DL (70-100); POTASSIUM SERUM 4.2 MEQ/L (3.5-5.1); SODIUM LEVEL 135 MEQ/L (136-145)
[2019-08-12] MEDS: NICOTINE 21MG/24HR 1 EA TRANSDERMAL TD SCH (07:43)
[2019-08-12] MEDS: LACTOBACILLUS ACIDOPHILUS CAP (BACID) PO SCH ×2 (07:43→16:53)
[2019-08-12] MEDS: metroNIDAZOLE (FLAGYL) 500 MG TAB PO SCH ×3 (07:43→21:39)
[2019-08-12] MEDS: SIMETHICONE 80 MG CHEW TAB PO SCH ×4 (07:44→21:39)
--- NOTE | 2019-08-12 08:49 | REP ---
KUB ABDOMEN/PELVIS: Two KUB films of abdomen/pelvis performed. Bowel gas pattern demonstrates no evidence for small bowel obstruction. No significantly dilated small bowel loops are seen. There are scattered vascular calcifications in the abdomen and pelvis. There are degenerative changes of the spine. There are chronic changes in the right lung base. IMPRESSION: No evidence of small bowel obstruction. Electronically Signed by Beto Schroeder MD 08/12/2019 10:12 A
--- NOTE | 2019-08-12 10:38 | IPNPDOC ---
Date Seen The patient was seen on 08/12/19. Progress Note "I feel alright." axr negative due to c/o nausea yesterday. denies n/v/abd pain, tolerating his diet. cough improved with less sputum able to sleep. no sob, or squires.denies suicide ideation PE VS see below GEN:Awake, alert, oriented to person, place and time. Neck is supple, full range of motion. No thyromegaly or cervical lymphadenopathy. Missing teeth. Dry mucous membranes. Lungs: Diminished with right basilar crackles. Heart: S1, S2, sinus rhythm. Abdomen is soft, nontender, nondistended. Extremities: No cyanosis, clubbing or pitting edema. Laboratory data, microbiology, imaging studies have been reviewed. ASSESSMENT AND PLAN: A 79-year-old with DO NOT RESUSCITATE/DO NOT INTUBATE with more than 100 pack-year history of smoking, chronic obstructive pulmonary disease (COPD), coronary artery disease, BPH, hypertension, hypothyroidism, pneumonia, presented with bilateral lower quadrant pain and shortness of breath, found on CT to have a right lower lobe pneumonia and focal stenosis on CT abdomen and pelvis of right common femoral, moderate stenosis of left common femoral and abdominal aortic aneurysm. Patient's abdominal pain has resolved. He is currently on antibiotics for right lower lobe pneumonia. Blood culture grew out Gram-positive and turns out to be a Staphylococcus epidermidis (staph epi) most likely contaminant and had received Zyvox. IMPRESSION: 1.Severe depression 2. Right middle lobe, lower lobe pneumonia. 3. Bilateral lower quadrant abdominal pain,resolved 4. Staphylococcus epidermidis bacteremia. 5. Sepsis secondary to pneumonia. 6. Bilateral femoral artery stenosis, peripheral arterial disease 7. Active tobacco abuse. 8. Infrarenal abdominal aortic aneurysm. 9. Abnormal EKG with chronic right bundle branch block. 10. Head trauma. CT of the head is negative. 11. suicide attempt times three. PLAN: -continue present mgt. -complete 7days abx -psych dr. bain consulted for suicide attempt -medically stable, awaiting PT clearance -defer to psych for [facility] admission. VS, I&O, 24H, Fishbone Vital Signs/I&O Vital Signs Date Time Temp Pulse Resp B/P (MAP) Pulse Ox O2 Delivery O2 Flow Rate FiO2 08/12/19 06:00 98.7 68 19 128/65 (86) 91 Room Air 5/28/20 21:00 2.0 I&O- Last 24 Hours up to 6 AM 08/12/19 06:00 Intake Total 1520 ml Output Total 200 ml Balance 1320 ml Laboratory Data 24H LABS Laboratory Tests 2 08/12/19 06:46: Immature Granulocyte % (Auto) 0.3, Neutrophils (%) (Auto) 66.7H, Lymphocytes (%) (Auto) 22.0L, Monocytes (%) (Auto) 10.0H, Eosinophils (%) (Auto) 0.7, Basophils (%) (Auto) 0.3, Neutrophils # (Auto) 6.6, Lymphocytes # (Auto) 2.2, Monocytes # (Auto) 1.0H, Eosinophils # (Auto) 0.1, Basophils # (Auto) 0.0, Nucleated Red Blood Cells % (auto) 0.0, Anion Gap 3L, Glomerular Filtration Rate > 60.0, Calcium Level 7.9L CBC/BMP Laboratory Tests 08/12/19 06:46 Microbiology Microbiology 08/10/19 Gram Stain - Final, Complete 08/10/19 Sputum Culture - Final, Complete Yeast Like Organism 08/10/19 Blood Culture - Preliminary, Resulted No Growth after 48 hours. All Specime... 08/09/19 Blood Culture - Preliminary, Resulted No Growth after 72 hours. All specime... 08/07/19 Blood Culture - Final, Complete Staphylococcus Epidermidis 08/07/19 Blood Culture - Final, Complete NO GROWTH AFTER 5 DAYS NICK JIMENEZ MD August 12, 2019 10:04
[2019-08-12 13:39] VITALS: BP 109/61
[2019-08-12 20:13] VITALS: BP 124/66
[2019-08-12] MEDS: ATORVASTATIN 20 MG TAB PO SCH (21:40)
[2019-08-12] MEDS: TEMAZEPAM 15 MG CAP PO SCH (21:40)
[2019-08-12] MEDS ORDERED: ACETAMINOPHEN TAB 650MG DOSE (2X325MG) PO PRN (23:15)
[2019-08-13 05:30] VITALS: BP 110/65
[2019-08-13] MEDS: LevoFLOXacin 750 MG TABLET PO SCH (06:09)
[2019-08-13] MEDS: LEVOTHYROXINE 25MCG TABLET (0.025MG) PO SCH (06:09)
[2019-08-13 07:15] LABS: BASO % 0.3 % (0.0-1.0); EOS # 0.1 10^3/uL (0.0-0.5); EOS % 0.6 % (0.0-3.0); HEMATOCRIT 35.6 % (42.0-52.0); HEMOGLOBIN 11.6 g/dl (13.5-17.5); LYMPH # 2.6 10^3/uL (1.5-5.0); LYMPH % 27.8 % (24.0-44.0); MEAN CORPUSCULAR HEMOGLOBIN 30.1 pg (27.0-33.0); MEAN CORPUSCULAR HGB CONC 32.6 g/dl (32.0-36.5); MEAN CORPUSCULAR VOLUME 92.2 fl (80.0-96.0); MONO # 0.9 10^3/uL (0.0-0.8); NEUTROPHILS # 5.7 10^3/uL (1.5-8.5); NEUTROPHILS % 60.7 % (36.0-66.0); PLATELET COUNT, AUTOMATED 336 10^3/uL (150-450); RED BLOOD COUNT 3.86 10^6/uL (4.30-6.10); WHITE BLOOD COUNT 9.3 10^3/uL (4.0-10.0)
[2019-08-13 07:36] LABS: BLOOD UREA NITROGEN 14 MG/DL (7-18); CALCIUM LEVEL 7.8 MG/DL (8.8-10.2); CARBON DIOXIDE LEVEL 29 MEQ/L (21-32); CHLORIDE LEVEL 102 MEQ/L (98-107); CREATININE FOR GFR 0.88 MG/DL (0.70-1.30); GLOMERULAR FILTRATION RATE > 60.0 (>42); GLUCOSE, FASTING 86 MG/DL (70-100); POTASSIUM SERUM 4.3 MEQ/L (3.5-5.1); SODIUM LEVEL 137 MEQ/L (136-145)
[2019-08-13] MEDS: NICOTINE 21MG/24HR 1 EA TRANSDERMAL TD SCH (08:30)
[2019-08-13] MEDS: SIMETHICONE 80 MG CHEW TAB PO SCH ×3 (08:30→17:17)
[2019-08-13] MEDS: metroNIDAZOLE (FLAGYL) 500 MG TAB PO SCH ×2 (08:30→17:17)
[2019-08-13] MEDS: LACTOBACILLUS ACIDOPHILUS CAP (BACID) PO SCH ×2 (08:30→17:17)
[2019-08-13] MEDS ORDERED: LEVA750T7 PO ×2 (11:00→13:32)
[2019-08-13] MEDS ORDERED: RISATAB3 PO ×2 (11:00→13:32)
[2019-08-13] MEDS ORDERED: SIME80TA PO ×2 (11:00→13:32)
[2019-08-13] MEDS ORDERED: NICO21PAT TD ×2 (11:00→13:32)
[2019-08-13] MEDS ORDERED: FLAG500T PO ×2 (11:00→13:32)
[2019-08-13] MEDS ORDERED: ONDA4TAB6 PO ×2 (11:00→13:32)
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
[2019-08-13 14:20] VITALS: BP 109/63
== END 2019-08-13 18:00 | disposition home health service (06) | DRG 871 ==
LOC: M ED 02:33 → EDBD 02:33 → M ED INP 08:55 → ENRESERV 09:31 → M MS5PR 11:05
PROVIDERS: ADMIT General Practice; ATTEND General Practice
DX: A41.9 Sepsis, unspecified organism (principal); J18.9 Pneumonia, unspecified organism; R45.851 Suicidal ideations; R10.30 Lower abdominal pain, unspecified; I77.1 Stricture of artery; S09.90XA Unspecified injury of head, initial encounter; F17.200 Nicotine dependence, unspecified, uncomplicated; I71.4 Abdominal aortic aneurysm, without rupture; J44.9 Chronic obstructive pulmonary disease, unspecified; I25.10 Atherosclerotic heart disease of native coronary artery without angina pectoris; N40.0 Benign prostatic hyperplasia without lower urinary tract symptoms; E03.9 Hypothyroidism, unspecified; I10 Essential (primary) hypertension; Z88.2 Allergy status to sulfonamides; Z88.0 Allergy status to penicillin; Z79.899 Other long term (current) drug therapy; Z66 Do not resuscitate; I45.10 Unspecified right bundle-branch block; W22.01XA Walked into wall, initial encounter; Y92.231 Patient bathroom in hospital as the place of occurrence of the external cause

== ENCOUNTER → 2020-07-02 | Outpatient (CLI) | payer OTHER ==
[~2020-07-02] MED LIST changes: +FLAG500T PO; +LEVA750T7 PO; -LISI-542 PO; +LISI-898 PO; +NICO21PAT TD; +ONDA4TAB6 PO; +RISATAB3 PO; +SIME80CH5 PO
--- NOTE | 2020-07-02 14:07 | REP ---
INDICATION: AAA, ATHEROSCLEROSIS US 1ST CT 2ND COMPARISON: 08/07/2019 TECHNIQUE: Axial noncontrast images from the lung bases to the pubic symphysis with coronal and sagittal reformations. This CT examination was performed using the following dose reduction techniques: Automated exposure control, adjustment of mA and/or kv according to the patient's size, and use of iterative reconstruction technique. FINDINGS: The aorta and branch vessels demonstrate heavy atherosclerotic calcifications. There is an infrarenal abdominal aortic aneurysm beginning approximately 3.5 cm below the renal arteries measuring roughly 4.1 x 4.5 cm maximal diameter and extending through the bifurcation to the bilateral common iliac arteries measuring approximately 2.9 cm diameter on the left and 2.2 cm diameter on the right. Liver, spleen, pancreas, and gallbladder are grossly normal. Adrenal glands again demonstrate stable hyperplastic changes (left greater than right). Kidneys demonstrate presumed vascular calcifications along with 1.7 cm left renal cyst. The enteric system is without obstruction or acute inflammatory process. Diverticulosis noted without acute diverticulitis. Pelvis demonstrates bladder wall thickening which is likely chronic and findings to suggest prior prostate surgery. No ascites. No free air. No adenopathy. Degenerative changes to the musculoskeletal structures without acute osseous abnormality. Lung bases demonstrate advanced emphysematous disease with right lower lobe scarring and nodules likely representing residual changes from prior right lower lobe process identified on 08/07/2019.. IMPRESSION: 1. Relatively stable infrarenal abdominal aortic aneurysm extending to the bilateral iliac arteries as noted above along with extensive calcified atheromatous changes to the aorta and vasculature. 2. Chronic stable nonacute findings through the abdomen and pelvis and visualized lung bases. <Electronically signed by Edin Sung > 07/02/20 [id number]
--- NOTE | 2020-07-02 15:06 | REP ---
INDICATION: AAA, ATHEROSCLEROSIS US 1ST CT 2ND COMPARISON: None. TECHNIQUE: Real time schroeder scale and color Doppler evaluation of the bilateral lower extremity arterial vasculature using linear high frequency transducer. FINDINGS: Extensive calcified atheromatous plaquing through the aneurysmal aorta and bilateral common iliac arteries which demonstrate decreased flow velocity and monophasic wave patterns. Peak systolic velocities (cm/sec) Distal aorta: 22 cm/sec Common iliac artery: Right 19; Left 23 External iliac artery: Right 94; Left 74 Schroeder scale and color images demonstrate extensive bilateral calcified atheromatous plaquing with multiple areas of shadowing limiting evaluation as well as evidence for noncalcified mural thrombus causing areas of narrowing and stenosis bilaterally (right greater than left). Right lower extremity demonstrates 8:1 stenosis at the proximal posterior tibial artery. Left lower extremity demonstrates 3:1 stenosis at the proximal posterior tibial artery. Peak systolic velocities (cm/sec) Common femoral artery: Right 40; Left 71 Profunda femoris: Right 54; Left 102 SFA (proximal): Right 19-38; Left 116 SFA (mid): Right 45; Left 72 SFA (distal): Right 37; Left 97 Popliteal artery: Right 29; Left 47 MAGO (prox.): Right 21; Left 58 Tibioperoneal trunk: Right 33; Left 34 BOILER CONTROL TECHNICIAN (prox.): Right 14-116; Left 33-103 BOILER CONTROL TECHNICIAN (distal): Right 41; Left 46 MAGO (distal): Right 16; Left 48 IMPRESSION: Significant diffuse calcified atheromatous plaquing throughout the visualized distal aorta which also demonstrates aneurysmal dilatation through the bilateral common iliac arteries and extension of atherosclerotic disease through the bilateral lower extremities with areas of stenosis in the proximal posterior tibial arteries (right greater than left). <Electronically signed by Edin Sung > 07/02/20 [id number]
== END ==
LOC: M RAD 12:20
PROVIDERS: ATTEND Surgery Vascular Surgery
DX: I71.4 Abdominal aortic aneurysm, without rupture (principal); I70.203 Unspecified atherosclerosis of native arteries of extremities, bilateral legs

== ENCOUNTER 2020-10-22 11:49 | Observation (INO) | payer OTHER ==
[~2020-10-22] VITALS: Ht 190.5 cm; Wt 66.2 kg
[~2020-10-22 11:49] MED LIST changes: -CVS10CAP8 PO; +MELA10CA6 PO
[2020-10-22] MEDS ORDERED: NS 500 ML IV ONE (12:15)
[2020-10-22 12:41] LABS: BASO % 0.2 % (0.0-1.0); EOS % 0.3 % (0.0-3.0); HEMATOCRIT 41.9 % (42.0-52.0); HEMOGLOBIN 13.8 g/dl (13.5-17.5); LYMPH # 1.2 10^3/uL (1.5-5.0); LYMPH % 12.7 % (24.0-44.0); MEAN CORPUSCULAR HGB CONC 32.9 g/dl (32.0-36.5); MEAN CORPUSCULAR VOLUME 94.2 fl (80.0-96.0); MONO # 1.3 10^3/uL (0.0-0.8); MONO % 13.8 % (2.0-8.0); NEUTROPHILS # 6.6 10^3/uL (1.5-8.5); NEUTROPHILS % 72.5 % (36.0-66.0); PLATELET COUNT, AUTOMATED 316 10^3/uL (150-450); RED BLOOD COUNT 4.45 10^6/uL (4.30-6.10); WHITE BLOOD COUNT 9.1 10^3/uL (4.0-10.0)
--- NOTE | 2020-10-22 12:47 | REP ---
INDICATION: CHEST PAIN. COMPARISON: In the 01 30 TECHNIQUE: AP view FINDINGS: Chronic pleural and parenchymal changes right base. No evidence of active parenchymal disease. Emphysema. Heart not enlarged. No evidence of failure. IMPRESSION: Chronic pleural-parenchymal changes right base. Emphysema. <Electronically signed by Meliton Amin > 10/22/20 [id number]
[2020-10-22 13:19] LABS: ALBUMIN 3.3 GM/DL (3.2-5.2); ALT/SGPT 45 U/L (12-78); BILIRUBIN,DIRECT 0.2 MG/DL (0.0-0.2); BILIRUBIN,TOTAL 0.6 MG/DL (0.2-1.0); BLOOD UREA NITROGEN 12 MG/DL (7-18); CARBON DIOXIDE LEVEL 34 MEQ/L (21-32); CHLORIDE LEVEL 91 MEQ/L (98-107); CK-MB VALUE MASS 3.5 NG/ML (<3.6); CPK CREATINE PHOSPHOKINASE 57 U/L (39-308); CREATININE FOR GFR 0.75 MG/DL (0.70-1.30); FREE T4 1.15 NG/DL (0.76-1.46); GLOMERULAR FILTRATION RATE > 60.0 (>35); GLUCOSE, FASTING 95 MG/DL (70-100); LIPASE 121 U/L (73-393); MB/CK RELATIVE INDEX 6.14 (< OR =4); NT-PRO BNP 588 PG/ML (<450); POTASSIUM SERUM 4.3 MEQ/L (3.5-5.1); SODIUM LEVEL 130 MEQ/L (136-145); TOTAL PROTEIN 6.4 GM/DL (6.4-8.2); TROPONIN I < 0.02 NG/ML (< 0.10)
[2020-10-22] MEDS ORDERED: methylPREDNISolone 125MG 2ML VIAL IV ONE (13:30)
[2020-10-22] MEDS: NS 1,000 ML IV SCH (14:40)
[2020-10-22] MEDS ORDERED: NICO21PAT TOP (14:49)
[2020-10-22] MEDS ORDERED: CLOP75TA2 PO (14:49)
[2020-10-22] MEDS ORDERED: MELA10CA6 PO (14:49)
[2020-10-22] MEDS ORDERED: SIME180C25 PO (14:49)
[2020-10-22] MEDS ORDERED: FURO20TA2 PO (14:49)
[2020-10-22] MEDS ORDERED: HOME MED LIST COMPLETE! XX SCH (14:50)
[2020-10-22] MEDS ORDERED: ALBUTEROL 90 MCG/ACT 8GM HFA INHALER INH PRN (15:00)
[2020-10-22] MEDS ORDERED: ACETAMINOPHEN TAB 650MG DOSE (2X325MG) PO PRN (15:05)
[2020-10-22 15:30] LABS: OSMOLALITY URINE 139 MOSM/KG (50-1400)
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
[2020-10-22 15:39] LABS: CREATININE,RANDOM URINE < 13.0 MG/DL; SODIUM,RANDOM URINE 45 MEQ/L
[2020-10-22 15:55] LABS: RSV AMPLIFICATION NEGATIVE (NEGATIVE)
[2020-10-22] MEDS: FUROSEMIDE 40MG/4ML VIAL (J1940) IV SCH (16:58)
[2020-10-22 17:15] VITALS: BP 144/79
[2020-10-22] MEDS: ENOXAPARIN 40MG/0.4ML SYRINGE (J1650 PER 10MG) SC SCH (17:28)
[2020-10-22] MEDS: IPRATROPIUM 0.5MG/ALBUTEROL 2.5MG INH SOL UD 3ML (DUONEB) NEB SCH ×2 (18:32→20:54)
[2020-10-22] MEDS: ADVAIR HFA 230/21MCG INHALER INH SCH (20:54)
[2020-10-22] MEDS ORDERED: TEMAZEPAM 15 MG CAP PO SCH (21:00)
[2020-10-22] MEDS ORDERED: ATORVASTATIN 20 MG TAB PO SCH (21:00)
[2020-10-22 22:00] VITALS: BP 113/67
[2020-10-23] MEDS: NS 1,000 ML IV SCH (01:52)
[2020-10-23] MEDS: IPRATROPIUM 0.5MG/ALBUTEROL 2.5MG INH SOL UD 3ML (DUONEB) NEB SCH ×2 (02:00→07:32)
[2020-10-23 06:00] VITALS: BP 111/66
[2020-10-23] MEDS ORDERED: LEVOTHYROXINE 25MCG TABLET (0.025MG) PO SCH (06:00)
--- NOTE | 2020-10-23 06:33 | ECGEPIP ---
[facility] - ED Test Date: 2020-10-22 Pat Name: CYRIL MITTAL Department: Room: - Gender: Male Bread Baker: OCTAVIA : 1940 Requested By: ELIANE DUMONT Order Number: [id number] Reading MD: Torres Castillo Measurements Intervals [place] Rate: 69 P: 72 MA: 226 QRS: 208 QRSD: 152 T: 52 QT: 392 QTc: 420 Interpretive Statements Sinus rhythm with 1st degree AV block with premature atrial complexes Right bundle branch block SIMILAR TO 08/07/19 Electronically Signed on 10-23-2020 6:32:42 EDT by Torres Castillo
[2020-10-23 06:38] LABS: HEMATOCRIT 34.9 % (42.0-52.0); MEAN CORPUSCULAR HEMOGLOBIN 30.9 pg (27.0-33.0); MEAN CORPUSCULAR HGB CONC 33.2 g/dl (32.0-36.5); MEAN CORPUSCULAR VOLUME 93.1 fl (80.0-96.0); PLATELET COUNT, AUTOMATED 297 10^3/uL (150-450); RED BLOOD COUNT 3.75 10^6/uL (4.30-6.10); WHITE BLOOD COUNT 5.5 10^3/uL (4.0-10.0)
[2020-10-23 06:42] LABS: HEMOGLOBIN 11.6 g/dl (13.5-17.5)
[2020-10-23 07:00] LABS: ALBUMIN 2.6 GM/DL (3.2-5.2); ALT/SGPT 33 U/L (12-78); BILIRUBIN,TOTAL 0.4 MG/DL (0.2-1.0); BLOOD UREA NITROGEN 13 MG/DL (7-18); CALCIUM LEVEL 7.9 MG/DL (8.8-10.2); CARBON DIOXIDE LEVEL 37 MEQ/L (21-32); CHLORIDE LEVEL 96 MEQ/L (98-107); CREATININE FOR GFR 0.68 MG/DL (0.70-1.30); GLOMERULAR FILTRATION RATE > 60.0 (>35); GLUCOSE, FASTING 109 MG/DL (70-100); MAGNESIUM LEVEL 1.8 MG/DL (1.8-2.4); POTASSIUM SERUM 4.4 MEQ/L (3.5-5.1); SODIUM LEVEL 133 MEQ/L (136-145)
[2020-10-23] MEDS: ADVAIR HFA 230/21MCG INHALER INH SCH (07:32)
[2020-10-23] MEDS ORDERED: CLOPIDOGREL 75 MG TAB PO SCH (09:00)
[2020-10-23] MEDS ORDERED: FUROSEMIDE 20 MG TAB PO SCH (09:00)
[2020-10-23] MEDS: FUROSEMIDE 40MG/4ML VIAL (J1940) IV SCH (09:00)
[2020-10-23] MEDS: ENOXAPARIN 40MG/0.4ML SYRINGE (J1650 PER 10MG) SC SCH (09:38)
[2020-10-23 10:00] VITALS: BP 92/50
[2020-10-23] MEDS ORDERED: TORS10TA3 PO (11:09)
[2020-10-23] MEDS ORDERED: ADVA115A INH (11:11)
[2020-10-23] MEDS ORDERED: TIOT18INH INH (11:11)
[2020-10-23 13:30] VITALS: BP 106/59
[2020-10-23 14:00] VITALS: BP 106/59
--- NOTE | 2020-10-23 19:28 | DS.PDOC ---
Discharge Summary General Date of Admission Oct 22, 2020 at 11:50 Date of Discharge 10/23/20 Discharge Summary PROCEDURES PERFORMED DURING STAY: [None]. ADMITTING DIAGNOSES: Hyponatremia COPD (chronic obstructive pulmonary disease) Emphysema lung Coronary artery disease Hypertension CHF (congestive heart failure) DISCHARGE DIAGNOSES: Hyponatremia COPD (chronic obstructive pulmonary disease) Emphysema lung Coronary artery disease Hypertension CHF (congestive heart failure) COMPLICATIONS/CHIEF COMPLAINT: Hyponatremia. HISTORY OF PRESENT ILLNESS: Patient is 80 years old male with past medical history of COPD, who is active smoker 1 pack in a day, COPD, CVA, coronary artery disease presented to hospital with hyponatremia. Patient stated that in the morning he visited PCP and he was found to have sodium level of 123. Patient reported that he drinks 1 beer every day. Patient denied any fever, chills, nausea, vomiting diarrhea or dysuria. During ambulation in ER his oxygenation dropped to 80s. Of note, PCP recommended supplemental oxygen and patient is awaiting for insurance approval. In ER patient was found to have 91% on room air, blood pressure within normal limit, hemoglobin 13.8, sodium 130, BNP 588. HOSPITAL COURSE: During the hospital stay the following issue addressed (1) Hyponatremia Resolved Most likely multifactorial currently attributed to beer potomania and CHF exacerbation Patient received fluid restriction to 1500 cc (2) COPD (chronic obstructive pulmonary disease) Most likely patient will need supplemental oxygen on discharge Continue inhalers Not in acute exacerbation (3) Emphysema lung Secondary to long smoking history Follow-up with brine purifier (4) Coronary artery disease Continue home meds Patient denies any chest pain EKG negative for acute ischemic changes (5) Hypertension Continue home meds (6) CHF (congestive heart failure) BNP elevated total 588 Echo pending Lasix IV DISCHARGE MEDICATIONS: Please see below. ALLERGIES: Please see below. PHYSICAL EXAMINATION ON DISCHARGE: VITAL SIGNS: Please see below. General Exam: Positive: Alert, Cooperative Eye Exam: Positive: PERRLA ENT Exam: Positive: Atraumatic Neck Exam: Positive: Supple, JVD Chest Exam: Positive: Clear to auscultation Heart Exam: Positive: Rate Normal Telemetry: Positive: No significant arrhythmia Abdomen Exam: Positive: Normal bowel sounds Extremity Exam: Positive: Clubbing Skin Exam: Positive: Nl turgor and temperature Neuro Exam: Positive: Strength at 5/5 X4 ext Psych Exam: Positive: Mental status NL, Oriented x 3 LABORATORY DATA: Please see below. PROGNOSIS: Fair ACTIVITY: [As tolerated]. DIET: Cardiac DISPOSITION: 01 Home, Self-Care. ITEMS TO FOLLOWUP ON ON OUTPATIENT: Follow-up with brine purifier and PCP DISCHARGE CONDITION: [Stable]. TIME SPENT ON DISCHARGE: 40 minutes. Vital Signs/I&Os Vital Signs Date Time Temp Pulse Resp B/P (MAP) Pulse Ox O2 Delivery O2 Flow Rate FiO2 10/23/20 14:00 96.4 71 18 106/59 (75) 97 Nasal Cannula 2.0 I&O- Last 24 Hours up to 6 AM 10/23/20 05:59 Intake Total 1650 ml Output Total 1590 ml Balance 60 ml Laboratory Data Labs 24H Laboratory Tests 2 10/23/20 05:51: Nucleated Red Blood Cells % (auto) 0.0, Anion Gap 0L, Glomerular Filtration Rate > 60.0, Calcium Level 7.9L, Magnesium Level 1.8, Total Bilirubin 0.4, Aspartate Amino Transf (AST/SGOT) 23, Alanine Aminotransferase (ALT/SGPT) 33, Alkaline Phosphatase 64, Total Protein 5.0#L, Albumin 2.6#L, Albumin/Globulin Ratio 1.1 CBC/BMP Laboratory Tests 10/23/20 05:51 Discharge Medications Scheduled Atorvastatin Calcium (Atorvastatin Calcium) 40 Mg Tablet, 40 MG PO QHS, (Reported) Clopidogrel Bisulfate (Clopidogrel) 75 Mg Tablet, 75 MG PO DAILY, (Reported) Fluticasone Propion/Salmeterol (Advair Hfa 115-21 Mcg Inhaler) 12 Gm Hfa.aer.ad, 2 PUFF INH BID Levothyroxine Sodium (Levothyroxine Sodium) 25 Mcg Tablet, 25 MCG PO DAILY, (Reported) Melatonin (Melatonin) 10 Mg Capsule, 10 MG PO QHS, (Reported) Simethicone (Simethicone) 180 Mg Capsule, 180 MG PO QID, (Reported) Temazepam (Temazepam) 15 Mg Capsule, 15 MG PO QHS, (Reported) Tiotropium [place] Monohydrate (Spiriva) 18 Mcg Cap.w.dev, 1 CAP INH DAILY Torsemide (Torsemide) 10 Mg Tablet, 1 TAB PO DAILY Scheduled PRN Albuterol Sulfate (Ventolin Hfa) 18 Gm Hfa.aer.ad, 2 PUFF INH QID PRN for wheezi ng, (Reported) Allergies Coded Allergies: Penicillins (Verified Allergy, Unknown, HIVES, 08/07/19) Sulfa (Sulfonamide Antibiotics) (Verified Allergy, Unknown, UNKNOWN PER PT, 08/07/19) DONY ESPINOSA DO Oct 23, 2020 19:28
--- NOTE | 2020-10-23 20:41 | ECHO ---
ECHOCARDIOGRAM DATE OF PROCEDURE: 10/23/2020 Age: 80 Gender: Male Height: 191 cm Weight: 155 kg REFERRING PHYSICIAN: Dr. Matt Mcdaniel INDICATION: Congestive heart failure MEASUREMENTS: IVS 1.1 cm LV 4.3 cm LVPW 1.2 cm LA 2.5 cm Aorta 4.4 cm ` Left atrium volume index 16 Mitral E wave velocity 49 A wave 64 E prime septal 4.7 E prime lateral 5.7 FINDINGS: This study is of acceptable technical quality especially concerning patient's body habitus. Patient is in sinus rhythm. Left ventricle is normal size. Mild left ventricular hypertrophy is noted. Overall preserved LV systolic function with LVEF estimated 60 to 65%. Normal RV size and systolic function. Left atrium appears mildly enlarged even though the volume index was calculated within normal values. Right atrium also appears normal. Aortic valve is heavily sclerotic, but mobily it is preserved. There are very prominent calcifications in the right coronary cusp. Mitral valve also has degenerative abnormalities with thickening of mitral leaflets and mitral annular calcifications, but mobility it is preserved. Tricuspid valve is normal. Pulmonic valve also appears normal. No pericardial effusion is noted. Inferior vena cava was poorly seen but grossly appears to be normal size. Aortic root is mildly dilated. Aortic arch was not well seen. There is apparent atherosclerosis in abdominal aorta. Doppler interrogation of aortic valve reveals no significant stenosis or insufficiency. There is trace mitral and tricuspid insufficiency. Calculated pulmonary artery pressure is in 30's, assuming normal central venous pressure corresponding to mild pulmonary hypertension. Trace pulmonic insufficiency is seen. Mitral inflow pattern and tissue Doppler imaging of mitral annulus revealed grade 1 diastolic dysfunction. CONCLUSIONS: 1. Study is of acceptable technical quality; underlying sinus rhythm. 2. Normal LV size with mild LVH and preserved LV systolic function. Grade 1 diastolic dysfunction. 3. Aortic sclerosis with no significant stenosis or insufficiency. 4. Trace mitral and tricuspid insufficiency. 5. Probably normal central venous pressure and mild pulmonary hypertension. 6. Dilated aortic root (4.4 cm). 7. Prominent atherosclerosis seen in abdominal aorta. MTDD
== END 2020-10-23 14:21 | disposition home or self-care (01) ==
LOC: M ED 11:49 → M ED INP 11:50 → ENRESERV 16:10 → M MSPAV 17:15
PROVIDERS: ADMIT Internal Medicine; ATTEND Internal Medicine
DX: E87.1 Hypo-osmolality and hyponatremia (principal); F10.188 Alcohol abuse with other alcohol-induced disorder; J44.1 Chronic obstructive pulmonary disease with (acute) exacerbation; J43.9 Emphysema, unspecified; I25.10 Atherosclerotic heart disease of native coronary artery without angina pectoris; I11.0 Hypertensive heart disease with heart failure; I50.9 Heart failure, unspecified; F17.218 Nicotine dependence, cigarettes, with other nicotine-induced disorders; Z86.73 Personal history of transient ischemic attack (TIA), and cerebral infarction without residual deficits; Z79.899 Other long term (current) drug therapy; Z88.0 Allergy status to penicillin; Z88.2 Allergy status to sulfonamides
CPT/HCPCS: 36415; 71045; 80048; 80053; 80076; 82550; 82553; 82570; 83690; 83735; 83880; 83930; 83935; 84300; 84439; 84443; 84484; 85025; 85027; 87631; 93005; 93041; 93306; 94640; 96361; 96372; 96374; 99285; G0378; J1650; J1940; J2930